=== PATIENT | female | born 2000 | race Caucasian/White ===

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

== ENCOUNTER → 2019-01-09 | Outpatient (CLI) | payer OTHER ==
--- NOTE | 2019-01-09 13:17 | Diagnostic Imaging Report ---
Left ankle at 12:24. Indication: Injured ankle. 3 views were obtained. There are no prior studies available for comparison. There is no fracture, dislocation or acute bony abnormality evident. Ankle mortise is not widened and the talar dome is smooth. There is soft tissue edema over the lateral malleolus. Impression: There is no evidence for an acute bony abnormality. Dictated by: Dictated on workstation # [id number]
== END ==
LOC: RAD 11:50
PROVIDERS: ATTEND Nurse Practitioner Family
DX: S99.912A Unspecified injury of left ankle, initial encounter (principal)
CPT/HCPCS: 73610

== ENCOUNTER → 2019-08-03 | Outpatient (CLI) | payer OTHER ==
[~2019-08-03] MED LIST changes: -CETI10TA20 PO; +CETI10TA21 PO; -MONT10TA24 PO; +MONT10TA26 PO; -OMEP20CA13 PO; +OMEP20CA18 PO; -TRAM50TA2 PO; +TRM50T PO
[2019-08-03 17:24] LABS: HEMOGLOBIN 12.6 G/DL (11.5-16.0); MEAN PLATELET VOLUME 10.9 FL (7.4-10.4); RED CELL DISTRIBUTION WIDTH 12.4 % (10.0-14.5); WHITE BLOOD COUNT 10.6 10^3/uL (4.3-11.0)
[2019-08-03 17:41] LABS: ALBUMIN 4.4 GM/DL (3.2-4.5)
[2019-08-03 17:42] LABS: CHLORIDE 103 MMOL/L (98-107); POTASSIUM 4.1 MMOL/L (3.6-5.0); SODIUM 138 MMOL/L (135-145)
[2019-08-03 17:43] LABS: AMYLASE 63 U/L (25-125); CALCIUM 9.2 MG/DL (8.5-10.1)
[2019-08-03 17:44] LABS: GLUCOSE 84 MG/DL (70-105)
[2019-08-03 17:45] LABS: CARBON DIOXIDE 25 MMOL/L (21-32)
[2019-08-03 17:46] LABS: BILIRUBIN,TOTAL 0.3 MG/DL (0.1-1.0)
[2019-08-03 17:47] LABS: ALKALINE PHOSPHATASE 84 U/L (40-136)
[2019-08-03 17:48] LABS: CREATININE SERUM 0.78 MG/DL (0.60-1.30); GFR ESTIMATED > 60
[2019-08-03 17:49] LABS: BUN/CREATININE RATIO 13
[2019-08-03 17:51] LABS: ALANINE AMINOTRANSFERASE 39 U/L (0-55); LIPASE 57 U/L (8-78)
[2019-08-03 18:13] LABS: FREE T4 (FREE THYROXINE) 1.02 NG/DL (0.70-1.48)
== END ==
LOC: LAB 17:07
PROVIDERS: ATTEND Nurse Practitioner Family
DX: E04.1 Nontoxic single thyroid nodule (principal); F41.1 Generalized anxiety disorder; F33.0 Major depressive disorder, recurrent, mild; E03.9 Hypothyroidism, unspecified; E16.1 Other hypoglycemia; L68.0 Hirsutism
CPT/HCPCS: 36415; 80053; 82150; 83036; 83690; 84439; 84443; 85027

== ENCOUNTER → 2019-08-09 | Outpatient (CLI) | payer OTHER ==
--- NOTE | 2019-08-09 13:23 | Diagnostic Imaging Report ---
CLINICAL INDICATION: Patient with thyroid nodule. Follow-up exam. COMPARISONS: Thyroid ultrasound dated 03/24/2018. 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 Left thyroid lobe measures 5.5 cm x 1.7 cm x 1.8 cm. The left thyroid gland is heterogeneous with several nodules noted. The largest one measures 1.3 cm x 0.7 cm x 1.1 cm involving the inferior posterior aspect of the left thyroid lobe and is heterogeneous and hypoechoic. This nodule was not measured on the prior study, and is remeasured at roughly 12 mm in craniocaudal dimension and 6 mm in AP dimension. The previous 6 mm predominantly hypoechoic nodule in the midportion of the left thyroid gland has not significantly changed. There is no other significant abnormality. IMPRESSION: 1: Grossly stable heterogeneous hypoechoic nodular area measuring 1.3 cm involving the posterior inferior aspect of the left thyroid lobe. 2: Stable 6 mm predominantly hypoechoic nodule involving the mid left thyroid gland. 3: Thyroid gland parenchyma is heterogeneous. Dictated by: Dictated on workstation # [id number]
== END ==
LOC: RAD 11:30
PROVIDERS: ATTEND Nurse Practitioner Family
DX: E04.2 Nontoxic multinodular goiter (principal); F41.1 Generalized anxiety disorder; F33.0 Major depressive disorder, recurrent, mild; E03.9 Hypothyroidism, unspecified; E16.1 Other hypoglycemia; L68.0 Hirsutism
CPT/HCPCS: 76536

== ENCOUNTER → 2019-08-23 | Outpatient (CLI) | payer OTHER | LOC: CARD 14:24 | PROVIDERS: ATTEND Nurse Practitioner Family | DX: R07.9 Chest pain, unspecified (principal) | CPT/HCPCS: 93225; 93226 ==

== ENCOUNTER → 2019-10-16 | Outpatient (CLI) | payer OTHER | LOC: LABNPT 05:30 | PROVIDERS: ATTEND Family Medicine | DX: R50.9 Fever, unspecified (principal); Z20.828 Contact with and (suspected) exposure to other viral communicable diseases | CPT/HCPCS: 87635 ==

== ENCOUNTER → 2019-10-30 | Outpatient (CLI) | payer OTHER ==
[~2019-10-30] MED LIST changes: -CETI10TA21 PO; +CETI10TA49 PO
== END ==
LOC: LABNPT 06:13
PROVIDERS: ATTEND Family Medicine
DX: R05 Cough (principal); R06.2 Wheezing; Z20.828 Contact with and (suspected) exposure to other viral communicable diseases
CPT/HCPCS: 87635

== ENCOUNTER → 2019-12-14 | Outpatient (CLI) | payer OTHER ==
[2019-12-14 12:34] LABS: BASOPHILS % (AUTO) 0 % (0-10); EOSINOPHILS # (AUTO) 0.1 10^3/uL (0.0-0.3); EOSINOPHILS % (AUTO) 1 % (0-10); HEMATOCRIT 42 % (35-52); HEMOGLOBIN 13.2 g/dL (11.5-16.0); LYMPHOCYTES # (AUTO) 2.3 10^3/uL (1.0-4.0); LYMPHOCYTES % (AUTO) 26 % (12-44); MEAN CORPUSCULAR HEMOGLOBIN 25 pg (25-34); MEAN CORPUSCULAR HGB CONC 31 g/dL (32-36); MEAN CORPUSCULAR VOLUME 80 fL (80-99); MEAN PLATELET VOLUME 11.2 fL (9.0-12.2); MONOCYTES # (AUTO) 0.5 10^3/uL (0.0-1.0); MONOCYTES % (AUTO) 6 % (0-12); NEUTROPHILS % (AUTO) 67 % (42-75); PLATELET COUNT 299 10^3/uL (130-400)
[2019-12-14 12:54] LABS: ALANINE AMINOTRANSFERASE 88 U/L (0-55); ALBUMIN 4.5 GM/DL (3.2-4.5); ALKALINE PHOSPHATASE 93 U/L (40-136); BILIRUBIN,TOTAL 0.4 MG/DL (0.1-1.0); BUN/CREATININE RATIO 17; CALCIUM 8.9 MG/DL (8.5-10.1); CARBON DIOXIDE 25 MMOL/L (21-32); CHLORIDE 102 MMOL/L (98-107); CREATININE SERUM 0.71 MG/DL (0.60-1.30); GFR ESTIMATED > 60; GLUCOSE 95 MG/DL (70-105); SODIUM 139 MMOL/L (135-145)
[2019-12-14 13:15] LABS: FREE T4 (FREE THYROXINE) 0.95 NG/DL (0.70-1.48)
== END ==
LOC: LAB 12:15
PROVIDERS: ATTEND Nurse Practitioner Family
DX: F41.1 Generalized anxiety disorder (principal); E03.9 Hypothyroidism, unspecified; E16.1 Other hypoglycemia; L68.0 Hirsutism; F33.0 Major depressive disorder, recurrent, mild
CPT/HCPCS: 36415; 80053; 83036; 84439; 84443; 85025

== ENCOUNTER → 2020-02-18 | Outpatient (CLI) | payer OTHER ==
[~2020-02-18] MED LIST changes: -MONT10TA26 PO; +MONT10TA97 PO
--- NOTE | 2020-02-18 12:20 | Diagnostic Imaging Report ---
PROCEDURE: US Thyroid. TECHNIQUE: Multiple real-time grayscale images were obtained of the thyroid in various projections. INDICATION: Thyroid nodule, follow-up. COMPARISON: Correlation is made to prior ultrasound from 08/09/2019. FINDINGS: Right lobe of thyroid is surgically absent. Left lobe measures 4.9 x 1.3 x 1.5 cm. Hypoechoic nodule in the posterior lower pole measures 1.3 x 1.0 x 0.6 cm, stable when compared to prior exam. 8 mm x 6 mm x 4 mm nodule in the upper pole of left lobe appears stable. No new masses detected. IMPRESSION: Stable left lobe thyroid nodules when compared with exam from 08/09/2019. Dictated by: Dictated on workstation # [id number]
== END ==
LOC: RAD 12:15
PROVIDERS: ATTEND Surgery
DX: E04.2 Nontoxic multinodular goiter (principal)
CPT/HCPCS: 76536

== ENCOUNTER → 2020-05-08 | Outpatient (CLI) | payer OTHER ==
[~2020-05-08] MED LIST changes: +MONT10TA32 PO; -MONT10TA97 PO
--- NOTE | 2020-05-08 12:27 | Diagnostic Imaging Report ---
Left foot at 11:52. Indication: Foot pain following injury. 3 views were obtained. There are no prior studies available for comparison. There is no fracture, dislocation or acute bony abnormality evident. The Lisfranc joint seems well maintained. The soft tissues are unremarkable. There is no sign of a radiopaque foreign body. Impression: There is no evidence for an acute bony abnormality or for a radiopaque foreign body. Dictated by: Dictated on workstation # [id number]
== END ==
LOC: RAD 11:43
PROVIDERS: ATTEND Nurse Practitioner Family
DX: M79.672 Pain in left foot (principal)
CPT/HCPCS: 73630

== ENCOUNTER → 2020-06-13 | Outpatient (CLI) | payer OTHER ==
--- NOTE | 2020-06-13 16:21 | Diagnostic Imaging Report ---
EXAMINATION: Left clavicle radiographs, 2 views. COMPARISON: August 06, 2014. HISTORY: 20-year-old female, left clavicle pain. FINDINGS: There is no identified fracture. The acromioclavicular joint is normally aligned. There are no acromioclavicular degenerative changes. IMPRESSION: Unremarkable radiographs of the left clavicle. Dictated by: Dictated on workstation # [id number]
--- NOTE | 2020-06-13 16:39 | Diagnostic Imaging Report ---
INDICATION: Decreased range of motion and pain with no known injury. TECHNIQUE: Three views of the left shoulder CORRELATION STUDY: None FINDINGS: The glenohumeral and acromioclavicular alignment are maintained and unremarkable. There is no evidence for acute fracture or dislocation. The visualized soft tissues are unremarkable. IMPRESSION: 1. Unremarkable examination left shoulder. Dictated by: Dictated on workstation # [id number]
== END ==
LOC: RAD 14:07
PROVIDERS: ATTEND Nurse Practitioner Family
DX: M25.512 Pain in left shoulder (principal); R29.898 Other symptoms and signs involving the musculoskeletal system
CPT/HCPCS: 73000; 73030

== ENCOUNTER 2020-06-19 12:35 | Emergency (ER) | payer OTHER ==
[~2020-06-19] VITALS: Ht 157 cm; Wt 81.0 kg
--- NOTE | 2020-06-19 12:54 | ED Upper Extremity ---
General Stated Complaint: L ARM/SHOULDER PAIN Source: patient Exam Limitations: no limitations History of Present Illness Date Seen by Provider: June 19, 2020 Time Seen by Provider: 12:52 Initial Comments To ER with left shoulder and left upper lateral chest pain. This initially began about a month ago without known injury she just had some insidious onset of left shoulder pain. Is worsened by movement. She was supposed to have an MRI of the shoulder but that has yet to be scheduled. Today at about 11 AM she had a recurrence of the left shoulder pain and some tingling down the left arm. No known injury. 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 Onset: other Severity: moderate Pain/Injury Location: left shoulder Method of Injury: unknown Modifying Factors: Worse With Movement Allergies and Home Medications Allergies Coded Allergies: vancomycin (Unverified Allergy, Intermediate, BRIGHT RED FACE WITH NO BREATHING DIFFICULTY, 03/17/15) Penicillins (Unverified Allergy, Mild, RASH,N/V; HAS RECEIVED ANCEF WITHOUT PROBLEM, 11/22/12) codeine (Unverified Allergy, Mild, STRONG FAMILY HX OF REACTIONS, 10/10/08) hydrocodone (Verified Allergy, Unknown, 12/23/17) Sulfa (Sulfonamide Antibiotics) (Unverified Adverse Reaction, Unknown, STRONG FAMILY HX OF REACTIONS, 03/17/15) Patient Home Medication List Home Medication List Reviewed: Yes Review of Systems Constitutional: see HPI EENTM: see HPI Respiratory: no symptoms reported Cardiovascular: no symptoms reported Genitourinary: no symptoms reported Musculoskeletal: see HPI Skin: no symptoms reported Psychiatric/Neurological: No Symptoms Reported Past Ndbgfpb-Cbegal-Uwljja Hx Patient Social History 2nd Hand Smoke Exposure: No Recent Hopitalizations: No Immunizations Up To Date Tetanus Booster (TDap): Less than 5yrs PED Vaccines UTD: Yes Date of Influenza Vaccine: Nov 21, 2017 Seasonal Allergies Seasonal Allergies: Yes Past Medical History Surgeries: Yes Ear Surgery, Thyroidectomy Respiratory: No Pneumonia Cardiac: No Neurological: Yes Headaches /Migraines Reproductive Disorders: Yes Female Reproductive Disorders: Denies, Polycystic Ovarian Dis Sexually Transmitted Disease: No HIV/AIDS: No Genitourinary: No Gastrointestinal: Yes Gastroesophageal Reflux, Irritable Bowel Musculoskeletal: Yes (R FOOT FRACTURE) Fractures Endocrine: Yes (PART OF THYROID TAKEN OUT) Diabetes, Non-Insulin dep HEENT: Yes ( TONSILS OUT) Chronic Ear Infection, Tonsilitis Loss of Vision: Bilateral Hearing Impairment: Denies Cancer: No (THYROID PRE-CANCEROUS CELLS) Psychosocial: No Anxiety, Depression Integumentary: No Blood Disorders: No Adverse Reaction/Blood Tranf: No (N/A) Family Medical History Alcoholism grandparents Arthritis grandparents Asthma grandparents Colon cancer grandparents Diabetes mellitus 19 MOTHER grandparents FH: Hodgkin's disease 19 MOTHER Hypertension 19 FATHER 19 MOTHER grandparents Cancer, Diabetes, Hypertension Physical Exam Vital Signs Vital Signs - First Documented 06/19/20 12:42 Temp 36.2 Pulse 73 Resp 18 B/P (MAP) 180/113 (135) Pulse Ox 99 Capillary Refill : Height, Weight, BMI Height: 5'1.00" Weight: 160lbs. 0.0oz. 72.275696gy; 30.2 BMI Method:Stated General Appearance: WD/WN, no apparent distress HEENT: PERRL/EOMI, normal ENT inspection Respiratory: no respiratory distress, no accessory muscle use Back: normal inspection, other (Limited range of motion secondary to pain within the shoulder joint) Elbow/Forearm: normal inspection, non-tender Wrist: Yes normal inspection, Yes non-tender Neurologic/Tendon: normal sensation Neurologic/Psychiatric: alert, normal mood/affect, oriented x 3 Skin: normal color, warm/dry The left hand over the ulnar side is questionably mottled and questionably cooler to touch than the right. This is not an obvious difference. The radius pulses strong and equal bilaterally. Progress/Results/Core Measures Results/Orders Lab Results Laboratory Tests Test 06/19/20 13:00 Range/Units White Blood Count 9.3 4.3-11.0 10^3/uL Red Blood Count 4.97 3.80-5.11 10^6/uL Hemoglobin 12.1 11.5-16.0 g/dL Hematocrit 38 35-52 % Mean Corpuscular Volume 77 L 80-99 fL Mean Corpuscular Hemoglobin 24 L 25-34 pg Mean Corpuscular Hemoglobin Concent 32 32-36 g/dL Red Cell Distribution Width 18.4 H 10.0-14.5 % Platelet Count 322 130-400 10^3/uL Mean Platelet Volume 11.9 9.0-12.2 fL Serum Test, Qualitative NEGATIVE NEGATIVE My Orders Orders - CHAO MCGARRY APRN Ed Iv/Invasive Line Start (06/19/20 12:48) Clonidine Tablet (Catapres Tablet) (06/19/20 13:00) Tramadol Tablet (Ultram Tablet) (06/19/20 13:00) Ct Angio Ext Upper Left W (06/19/20 12:48) Hcg,Qualitative Serum (06/19/20 12:48) Cbc No Diff (06/19/20 12:48) Iohexol Injection (Omnipaque 350 Mg/Ml 1 (06/19/20 13:15) Received Contrast (Hold Metformin- Contr (06/19/20 13:15) Sodium Chloride Flush (Catheter Flush Sy (06/19/20 13:15) Ns (Ivpb) (Sodium Chloride 0.9% Ivpb Bag (06/19/20 13:15) Medications Given in ED Current Medications Medications Dose Ordered Sig/Keon Route Start Time Stop Time Status Last Admin Dose Admin Clonidine HCl 0.1 mg ONCE ONCE PO 06/19/20 13:00 06/19/20 13:01 DC 06/19/20 13:12 0.1 MG Iohexol 100 ml ONCE ONCE IV 06/19/20 13:15 06/19/20 13:16 DC 06/19/20 13:44 72 ML Sodium Chloride 10 ml NEEDED PRN IV 06/19/20 13:15 06/19/20 13:44 10 ML Sodium Chloride 100 ml ONCE ONCE IV 06/19/20 13:15 06/19/20 13:16 DC 06/19/20 13:44 80 ML Tramadol HCl 50 mg ONCE ONCE PO 06/19/20 13:00 06/19/20 13:01 DC 06/19/20 13:12 50 MG Vital Signs/I&O 06/19/20 12:42 Temp 36.2 Pulse 73 Resp 18 B/P (MAP) 180/113 (135) Pulse Ox 99 Departure Communication (Admissions) NAME: LUISA RODRIGUEZ [facility] REC#: [id number] PT STATUS: REG ER : 2000 PHYSICIAN: CHAO MCGARRY APRN ADMIT DATE: 06/19/20/ER Draft Date of Exam:06/19/20 CT ANGIO EXT UPPER LEFT W INDICATION: Left arm pain CTA of left upper extremity Thin axial sections through the left upper extremity from the neck to elbow were obtained following an intravenous contrast bolus. Multiplanar MIP images reconstructed and reviewed. Left subclavian vein is widely patent. Left axillary vein is widely patent. Left brachial vein is widely patent. The veins are not dilated. There are no pathologic masses or fluid collections. IMPRESSION: Unremarkable left subclavian, axillary and brachial arteries. Dictated on workstation # [id number] Dict: 06/19/20 1411 Trans: 06/19/20 1415 [facility] [id number] Interpreted by: UZMA VILLEGAS MD Electronically signed by: Impression Primary Impression: Internal derangement of left shoulder Disposition: 01 HOME, SELF-CARE Condition: Stable Departure-Patient Inst. Decision time for Depature: 14:22 Referrals: BILLY FRANZ MD (PCP/Family) Primary Care Physician Patient Instructions: Shoulder Pain (DC) Add. Discharge Instructions: 1. Medication as directed. Follow-up with your doctor next week. Proceed with the MRI. Copy Copies To 1: BILLY FRANZ MD, PETER J APRN June 19, 2020 12:54
[2020-06-19] MEDS ORDERED: cloNIDine 0.1 MG (CATAPRES) TAB PO ONE (13:00)
[2020-06-19 13:10] LABS: HEMOGLOBIN 12.1 g/dL (11.5-16.0); MEAN PLATELET VOLUME 11.9 fL (9.0-12.2); WHITE BLOOD COUNT 9.3 10^3/uL (4.3-11.0)
[2020-06-19] MEDS ORDERED: IOHEXOL 350 MG/ML 100 ML (OMNIPAQUE 350) VIAL IV ONE (13:15)
[2020-06-19] MEDS ORDERED: NS 100 ML (IVPB) BAG IV ONE (13:15)
[2020-06-19] MEDS ORDERED: HOLD METFORMIN - RECEIVED CONTRAST 20 ML VIAL IV SCH (13:15)
[2020-06-19] MEDS ORDERED: CATHETER FLUSH 10 ML SYR IV PRN (13:15)
[2020-06-19] MEDS ORDERED: NORE1PAT10 (13:25)
[2020-06-19] MEDS ORDERED: SERT-414 (13:25)
--- NOTE | 2020-06-19 14:15 | Diagnostic Imaging Report ---
INDICATION: Left arm pain CTA of left upper extremity Thin axial sections through the left upper extremity from the neck to elbow were obtained following an intravenous contrast bolus. Multiplanar MIP images reconstructed and reviewed. Left subclavian vein is widely patent. Left axillary vein is widely patent. Left brachial vein is widely patent. The veins are not dilated. There are no pathologic masses or fluid collections. IMPRESSION: Unremarkable left subclavian, axillary and brachial arteries. Dictated by: Dictated on workstation # [id number]
[2020-06-19 14:53] VITALS: BP 132/102
== END 2020-06-19 14:53 | disposition home or self-care (01) ==
LOC: EDUNIT# 12:35 → ER 12:37
DX: M24.9 Joint derangement, unspecified (principal); E11.9 Type 2 diabetes mellitus without complications; Z88.0 Allergy status to penicillin; Z88.5 Allergy status to narcotic agent; Z88.2 Allergy status to sulfonamides; Z88.8 Allergy status to other drugs, medicaments and biological substances
CPT/HCPCS: 36415; 73206; 84703; 85027

== ENCOUNTER → 2020-07-02 | Outpatient (CLI) | payer OTHER ==
[~2020-07-02] VITALS: Ht 157.5 cm; Wt 84.1 kg
[~2020-07-02] MED LIST changes: +GADOBUTROL 7.5 MMOL/7.5 ML (GADAVIST) VIAL IV ONE; +IOHEXOL 300 MG/ML 50 ML (OMNIPAQUE 300) VIAL IV ONE; +NORE1PAT10; +SERT-414
--- NOTE | 2020-07-02 15:56 | Diagnostic Imaging Report ---
INDICATION: Left shoulder pain. PROCEDURE: Patient was brought to the procedure room and placed on table in the supine position. Skin of the left shoulder was prepped and draped in the usual sterile fashion. Small amount of 1% lidocaine was utilized for local anesthesia. A 22-gauge needle was advanced into the left shoulder at the rotator interval. A 15 mm solution of iodinated contrast, normal saline and gadolinium was injected under fluoroscopic observation. Needle was removed and hemostasis was obtained. 21 seconds of fluoroscopic time was utilized. The patient tolerated the procedure well and was sent to MRI in satisfactory condition. IMPRESSION: Successful left shoulder injection of gadolinium contrast solution, using fluoroscopy. Dictated by: Dictated on workstation # [id number]
--- NOTE | 2020-07-02 16:58 | Diagnostic Imaging Report ---
EXAMINATION: Magnetic resonance imaging of the left shoulder with intra-articular contrast. DATE: July 02, 2020. COMPARISON: Left shoulder arthrogram July 02, 2020. Left shoulder radiographs June 13, 2020. HISTORY: 20-year-old female, left shoulder pain. Evaluation for superior labral tear. TECHNIQUE: Magnetic Resonance Imaging sequences were performed of the shoulder following the intra-articular administration of contrast. FINDINGS: ROTATOR CUFF, LIGAMENTS, TENDONS, AND MUSCLES: The supraspinatus, infraspinatus, teres minor, and subscapularis tendons and muscles are intact. There is normal rotator cuff muscle bulk and signal. LONG HEAD OF BICEPS: The biceps labral attachment and long head of the biceps tendon are intact. The long head of the biceps tendon is normally positioned within the bicipital groove. GLENOHUMERAL JOINT: The humeral head is well positioned relative to the glenoid. The labrum is intact. There is no identified paralabral cyst. The articular cartilage is grossly intact. There is no intra-articular body or prominent synovitis. ACROMIOCLAVICULAR JOINT: The acromioclavicular joint is normally aligned. The coracoclavicular and coracoacromial ligaments are intact. There are no degenerative changes of the acromioclavicular joint. BONE: There is no os acromiale. There is no Hill-Sachs deformity. There is no acute fracture, bone contusion, or other notable bone marrow signal abnormality. BURSAE AND SOFT TISSUES: The bursae and soft tissue surrounding the shoulder are unremarkable. IMPRESSION: Unremarkable MRI arthrogram of the left shoulder. Dictated by: Dictated on workstation # [id number]
== END ==
LOC: RAD 13:30
PROVIDERS: ATTEND Nurse Practitioner
DX: S43.432A Superior glenoid labrum lesion of left shoulder, initial encounter (principal); M75.02 Adhesive capsulitis of left shoulder; X58.XXXA Exposure to other specified factors, initial encounter
CPT/HCPCS: 23350; 73040; 73222

== ENCOUNTER 2020-08-24 14:00 | Day surgery (SDC) | payer OTHER ==
[~2020-08-24] VITALS: Ht 157.4 cm; Wt 83.2 kg
[~2020-08-24 14:00] MED LIST changes: -GADOBUTROL 7.5 MMOL/7.5 ML (GADAVIST) VIAL IV ONE; -IOHEXOL 300 MG/ML 50 ML (OMNIPAQUE 300) VIAL IV ONE
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
[2020-08-24 15:16] LABS: BASOPHILS % (AUTO) 0 % (0-10); EOSINOPHILS # (AUTO) 0.1 10^3/uL (0.0-0.3); EOSINOPHILS % (AUTO) 0 % (0-10); HEMATOCRIT 41 % (35-52); HEMOGLOBIN 13.3 g/dL (11.5-16.0); LYMPHOCYTES # (AUTO) 1.7 10^3/uL (1.0-4.0); LYMPHOCYTES % (AUTO) 10 % (12-44); MEAN CORPUSCULAR HEMOGLOBIN 26 pg (25-34); MEAN CORPUSCULAR HGB CONC 32 g/dL (32-36); MEAN CORPUSCULAR VOLUME 81 fL (80-99); MEAN PLATELET VOLUME 11.2 fL (9.0-12.2); MONOCYTES # (AUTO) 0.8 10^3/uL (0.0-1.0); MONOCYTES % (AUTO) 5 % (0-12); NEUTROPHILS # (AUTO) 13.7 10^3/uL (1.8-7.8); NEUTROPHILS % (AUTO) 84 % (42-75); PLATELET COUNT 299 10^3/uL (130-400); WHITE BLOOD COUNT 16.4 10^3/uL (4.3-11.0)
[2020-08-24 15:19] LABS: BILIRUBIN,URINE NEGATIVE (NEGATIVE); CLARITY,URINE CLEAR; COLOR,URINE YELLOW; GLUCOSE, URINE (UA) NEGATIVE (NEGATIVE); KETONES,URINE NEGATIVE (NEGATIVE); LEUKOCYTE ESTERASE ,URINE TRACE (NEGATIVE); NITRITE,URINE NEGATIVE (NEGATIVE); PH,URINE 5.5 (5-9); PROTEIN,URINE NEGATIVE (NEGATIVE)
[2020-08-24 15:24] LABS: CHLORIDE 102 MMOL/L (98-107); SODIUM 136 MMOL/L (135-145)
[2020-08-24 15:25] LABS: CALCIUM 9.2 MG/DL (8.5-10.1)
[2020-08-24 15:26] LABS: GLUCOSE 92 MG/DL (70-105); TOTAL PROTEIN 7.5 GM/DL (6.4-8.2)
[2020-08-24 15:28] LABS: BILIRUBIN,TOTAL 0.3 MG/DL (0.1-1.0); CARBON DIOXIDE 23 MMOL/L (21-32)
[2020-08-24 15:30] LABS: ALKALINE PHOSPHATASE 73 U/L (40-136); CREATININE SERUM 0.75 MG/DL (0.60-1.30); GFR ESTIMATED > 60
[2020-08-24] MEDS ORDERED: KETOROLAC 30 MG/ML VIAL IVP ONE (15:30)
[2020-08-24 15:31] LABS: BUN/CREATININE RATIO 13
[2020-08-24 15:33] LABS: ALANINE AMINOTRANSFERASE 25 U/L (0-55)
[2020-08-24 15:45] LABS: BAND NEUTROPHILS 4 %; NEUTROPHILS % (MANUAL) 82 %
[2020-08-24] MEDS ORDERED: NS 100 ML (IVPB) BAG IV ONE ×2 (15:45→16:45)
[2020-08-24] MEDS ORDERED: HOLD METFORMIN - RECEIVED CONTRAST 20 ML VIAL IV SCH ×2 (15:45→16:45)
[2020-08-24] MEDS ORDERED: IOHEXOL 350 MG/ML 100 ML (OMNIPAQUE 350) VIAL IV ONE ×2 (15:45→16:45)
[2020-08-24 15:46] LABS: BASOPHILS % (MANUAL) 0 %; EOSINOPHILS % (MANUAL) 0 %; LYMPHOCYTES % (MANUAL) 9 %; MONOCYTES % (MANUAL) 5 %; RBC MORPH NORMAL
[2020-08-24 15:48] LABS: BACTERIA,URINE TRACE /HPF; RBC,URINE RARE /HPF; WBC,URINE RARE /HPF
--- NOTE | 2020-08-24 16:19 | Diagnostic Imaging Report ---
PROCEDURE: CT abdomen and pelvis with contrast, rule out appendicitis. TECHNIQUE: Multiple contiguous axial images were obtained through the abdomen and pelvis after the administration of intravenous contrast. All CT scans use one or more of the following dose optimizing techniques: automated exposure control, MA and/or KvP adjustment based on patient size and exam type or iterative reconstruction. INDICATION: Right upper quadrant abdominal pain. CORRELATION STUDY: 06/26/2018. FINDINGS: LOWER THORAX: Clear. LIVER: Unremarkable. GALLBLADDER: Present and unremarkable. No bile duct dilatation. SPLEEN: Borderline enlarged. PANCREAS: Unremarkable. ADRENAL GLANDS: Unremarkable. KIDNEYS: Slight asymmetrically smaller right kidney which also demonstrates several cortical cysts. Nonobstructing stone in the inferior pole of left kidney. No ureteric calcification or obstructive uropathy. ABDOMINAL AORTA: Unremarkable, nonaneurysmal. GASTROINTESTINAL TRACT: Stomach with small amount of fluid. No small bowel obstruction. The appendix currently appears to be limited in visualization but measures just under 7 mm. There is however suggestion of slight pericecal inflammatory change with very small amount of haziness in the right paracolic gutter. No abscess formation. A few scattered mesenteric lymph nodes. URINARY BLADDER: Relatively decompressed. REPRODUCTIVE: Uterus and adnexa appear generally unremarkable. OSSEOUS STRUCTURES: No acute abnormality. OTHER: None. IMPRESSION: 1. The appendix is limited visualization. What appears to be the appendix, however, is borderline prominent measuring just under upper limits of normal. There is, however, question of suspect slight haziness and inflammation in and around the appendix and cecum. Findings are somewhat equivocal but suspicious for potential early acute appendicitis. Dictated by: Dictated on workstation # [id number]
--- NOTE | 2020-08-24 16:47 | Progress Note-Pre Operative ---
Pre-Operative Progress Note H&P Reviewed The H&P was reviewed, patient examined and no changes noted. Date Seen by Provider: Aug 24, 2020 Time Seen by Provider: 17:00 Date H&P Reviewed: Aug 24, 2020 Time H&P Reviewed: 17:00 Pre-Operative Diagnosis: non-complicated acute appendicitis CHARLOTTE SINGLETON MD Aug 24, 2020 16:47
--- NOTE | 2020-08-24 17:07 | HISTORY AND PHYSICAL ---
DATE OF SERVICE: ATTENDING PRIMARY CARE PHYSICIAN: Leatha Dash MD. HISTORY OF PRESENT ILLNESS: The patient is a 20-year-old female who presented to the Emergency Department with acute onset of pain in the right lower abdominal quadrant this morning. She states that she had some milder episodes yesterday; however, insignificant. She does not report any nausea nor vomiting as well as no diarrhea or constipation. She also does not report having these symptoms before in the past. A CT scan was performed, which did show dilatation of the appendix consistent with a noncomplicated appendicitis. PAST MEDICAL HISTORY: Polycystic ovarian syndrome, migraine headaches, history of pneumonia, gastroesophageal reflux disease, irritable bowel syndrome, non-insulin dependent diabetes, thyroid dysplasia. PAST SURGICAL HISTORY: Partial thyroidectomy. ALLERGIES: VANCOMYCIN, PENICILLIN, CODEINE, HYDROCODONE, SULFA. MEDICATIONS: Sertraline 100 mg daily, norelgestromin/estradiol 1 patch every week. SOCIAL HISTORY: Negative smoke, negative alcohol. VITAL SIGNS: Temperature 37.1, blood pressure 133/106, pulse 111, respirations 18, pulse ox 98% on room air. REVIEW OF SYSTEMS: She is well-nourished female currently in no acute distress. She is not experiencing any shortness of breath or difficulty breathing. No chest pain, palpitations, diaphoresis. No nausea or vomiting. No diarrhea or constipation, no red blood per rectum, no dark tarry stools. No fever or chills. No recent inadvertent weight loss. All other review of systems negative. PHYSICAL EXAMINATION: CHEST: Clear. Good breath sounds bilaterally. HEART: Regular, no murmurs. EXTREMITIES: No lower extremity edema, negative Homans sign. HEENT: No scleral icterus. NECK: No cervical lymphadenopathy. ABDOMEN: Nondistended. There is pain in the right lower abdominal quadrant at McBurney's point with voluntary guarding, no rebound. No hernias. SKIN: Warm, dry. LABORATORY DATA: WBC 16.4, hemoglobin 13.3, hematocrit 41, platelets 299. BUN 10, creatinine 0.75. Urinalysis, trace amounts of leukocyte esterase. ASSESSMENT AND PLAN: A 20-year-old female with a noncomplicated acute appendicitis. The natural history of this disease process was explained to the patient as well as the risks and benefits of surgery and she is in full understanding of this and would like to proceed with a laparoscopic appendectomy, which we will schedule on this admission. Job ID: [id number] DocumentID: [id number] Dictated Date: 08/24/2020 16:43:43 Second Helper Date: 08/24/2020 17:07:10 Dictated By: CHARLOTTE SINGLETON MD
[2020-08-24] MEDS ORDERED: ACETAMINOPHEN 325 MG TABLET PO PRN (17:45)
[2020-08-24] MEDS ORDERED: PIPERACILLIN/TAZOBACTAM (BULK) 4.5 GM in NS (IVPB) 100 ML IV ONE (18:00)
[2020-08-24] MEDS ORDERED: LACTATED RINGERS 1,000 ML IV ONE (18:00)
[2020-08-24] MEDS: LACTATED RINGERS 1,000 ML IV SCH (18:09)
[2020-08-24 20:40] VITALS: BP 124/86
[2020-08-24] MEDS: fentaNYL INJ 100 MCG/2 ML AMP IVP PRN (22:32)
[2020-08-24] MEDS: ONDANSETRON 4 MG/2 ML (SDV) Z0FRAN IVP PRN (22:33)
[2020-08-25] VITALS (13 sets, daily range): BP systolic 109–129; BP diastolic 62–87
[2020-08-25] MEDS: LACTATED RINGERS 1,000 ML IV SCH ×3 (02:05→16:48)
[2020-08-25] MEDS: PIPERACILLIN/TAZOBACTAM (BULK) 4.5 GM in NS (IVPB) 100 ML IV SCH ×3 (02:05→19:46)
[2020-08-25 06:53] LABS: BASOPHILS % (AUTO) 0 % (0-10); EOSINOPHILS # (AUTO) 0.1 10^3/uL (0.0-0.3); EOSINOPHILS % (AUTO) 1 % (0-10); HEMATOCRIT 37 % (35-52); HEMOGLOBIN 11.9 g/dL (11.5-16.0); LYMPHOCYTES # (AUTO) 2.4 10^3/uL (1.0-4.0); LYMPHOCYTES % (AUTO) 31 % (12-44); MEAN CORPUSCULAR HEMOGLOBIN 26 pg (25-34); MEAN CORPUSCULAR HGB CONC 32 g/dL (32-36); MEAN CORPUSCULAR VOLUME 82 fL (80-99); MEAN PLATELET VOLUME 11.6 fL (9.0-12.2); MONOCYTES # (AUTO) 0.6 10^3/uL (0.0-1.0); MONOCYTES % (AUTO) 7 % (0-12); NEUTROPHILS # (AUTO) 4.6 10^3/uL (1.8-7.8); NEUTROPHILS % (AUTO) 60 % (42-75); PLATELET COUNT 225 10^3/uL (130-400); WHITE BLOOD COUNT 7.7 10^3/uL (4.3-11.0)
[2020-08-25 07:04] LABS: CHLORIDE 105 MMOL/L (98-107); POTASSIUM 3.7 MMOL/L (3.6-5.0); SODIUM 138 MMOL/L (135-145)
[2020-08-25 07:05] LABS: CALCIUM 8.4 MG/DL (8.5-10.1); GLUCOSE 84 MG/DL (70-105)
[2020-08-25 07:07] LABS: CARBON DIOXIDE 22 MMOL/L (21-32)
[2020-08-25 07:09] LABS: CREATININE SERUM 0.74 MG/DL (0.60-1.30); GFR ESTIMATED > 60
[2020-08-25 07:10] LABS: BUN/CREATININE RATIO 11
[2020-08-25] MEDS: fentaNYL INJ 100 MCG/2 ML AMP IVP PRN ×4 (07:54→22:35)
[2020-08-25] MEDS: ONDANSETRON 4 MG/2 ML (SDV) Z0FRAN IVP PRN ×3 (10:12→20:58)
[2020-08-25] MEDS ORDERED: SPIR50TA4 PO (10:14)
[2020-08-25] MEDS ORDERED: CETI10TA49 PO (10:14)
[2020-08-25] MEDS ORDERED: NORE1PAT7 TD (10:14)
[2020-08-25] MEDS ORDERED: LACT1CAP72 PO (10:14)
[2020-08-25] MEDS ORDERED: MULT-1136 PO (10:14)
[2020-08-25] MEDS ORDERED: ACET325T38 PO (10:14)
[2020-08-25] MEDS ORDERED: ESCI20TA39 PO (10:14)
[2020-08-25] MEDS ORDERED: ONDANSETRON 4 MG/2 ML (SDV) Z0FRAN ONE (14:44)
[2020-08-25] MEDS ORDERED: ROCURONIUM 10 MG/ML 5 ML SYRINGE IV ONE (14:44)
[2020-08-25] MEDS ORDERED: MIDAZOLAM 2 MG/2 ML (VERSED) VIAL ONE (14:44)
[2020-08-25] MEDS ORDERED: LIDOCAINE PF 2% 5 ML (XYLOCAINE) VIAL ONE (14:44)
[2020-08-25] MEDS ORDERED: fentaNYL INJ 100 MCG/2 ML AMP ONE (14:44)
[2020-08-25] MEDS ORDERED: proPOfol 200 MG/20 ML (DIPRIVAN) VIAL IV ONE (14:44)
[2020-08-25] MEDS ORDERED: SEVOFLURANE (ULTANE) 15 ML INHAL SOLN ONE ×2 (14:45→17:55)
[2020-08-25] MEDS ORDERED: LIDOCAINE/EPI 1%-1:200,000 (XYLOCAINE) 30 ML VIAL ONE (15:11)
[2020-08-25] MEDS ORDERED: ONDANSETRON 4 MG/2 ML (SDV) Z0FRAN IVP PRN (16:45)
[2020-08-25] MEDS ORDERED: fentaNYL INJ 100 MCG/2 ML AMP IVP ONE (16:45)
[2020-08-25] MEDS ORDERED: LACTATED RINGERS 1,000 ML IV PRN (16:45)
[2020-08-25] MEDS ORDERED: MEPERIDINE (DEMEROL) INJ 50 MG/ML IVP ONE (16:45)
[2020-08-25] MEDS ORDERED: HYDR-3817 PO (17:21)
--- NOTE | 2020-08-25 17:22 | Discharge Inst-Surgical ---
D/C Lap Instructions-MANI New, Converted, or Re-Newed RX: RX on Chart Follow Up Appt in 2 weeks Activity as tolerated No driving for 24 hours No [address] while on pain medications Incentive Spirometry use every 2 hours while awake Regular Diet Symptoms to Report: Fever over 101 degree F, Nausea/Vomiting Infection Signs and Symptoms to report: Increased redness, Foul odor of wound, Increased drainage Bathing instructions: May shower Operative Area Clean/Dry; Keep incision clean/dry If any problems/questions: Contact your physician or go to Emergency Room CHARLOTTE SINGLETON MD Aug 25, 2020 17:22
[2020-08-25] MEDS ORDERED: ceFAZolin INJECTION 2,000 MG ONE (17:47)
--- NOTE | 2020-08-25 18:15 | Progress Note-Post Operative ---
Post-Operative Progess Note Surgeon (s)/Photographic Printer (s) Surgeon CHARLOTTE SINGLETON MD Photographic Printer: none Pre-Operative Diagnosis non-complicated acute appendicitis Post-Operative Diagnosis same Procedure & Operative Findings Date of Procedure 08/25/20 Procedure Performed/Findings laparoscopic appendectomy Anesthesia Type get Estimated Blood Loss Estimated blood loss (mL): minimal Specimens/Packing Specimens Removed appendix CHARLOTTE SINGLETON MD Aug 25, 2020 18:15
[2020-08-25] MEDS ORDERED: METOCLOPRAMIDE INJ 10 MG/2 ML (REGLAN) IVP PRN (20:15)
[2020-08-26] VITALS: BP 122/75
[2020-08-26] MEDS: fentaNYL INJ 100 MCG/2 ML AMP IVP PRN ×3 (01:43→07:50)
--- NOTE | 2020-08-26 03:36 | OPERATIVE REPORT ---
DATE OF SERVICE: 08/25/2020 PREOPERATIVE DIAGNOSIS: Acute appendicitis. POSTOPERATIVE DIAGNOSIS: Acute appendicitis. PROCEDURE: Laparoscopic appendectomy. SURGEON: Charlotte Singleton MD ANESTHESIA: General endotracheal. ESTIMATED BLOOD LOSS: Minimal. FINDINGS: Inflamed appendix, no perforation. DISPOSITION: The patient tolerated the procedure well. INDICATIONS: The patient is a 20-year-old female who presented with a 1-day history of pain in the right lower abdominal quadrant. The pain persisted and worsened over time. She then presented to the Emergency Department where a CT scan was performed, which did show dilatation of the appendix consistent with an acute noncomplicated appendicitis. She also had elevated white count. DESCRIPTION OF PROCEDURE: The patient was brought to the operating room, laid supine on the table. After adequate IV pain and sedative medications and general endotracheal intubation, the abdomen was prepped and draped in standard surgical fashion. A 0.5% Marcaine with epinephrine was then used to anesthetize overlying skin left upper abdominal quadrant and a transverse skin incision made using 15 blade. An 0 silk suture was applied to the medial aspect of incision for retraction and a Veress needle inserted with a low opening pressure of 0 mmHg and the abdomen was then insufflated to 15 mmHg pressure. Veress needle removed and a 5 mm XL trocar placed followed by a 5 mm 45-degree angle laparoscope visualizing the peritoneal cavity. A 4-quadrant abdominal exploration was performed. There was a distended appendix, no perforation. The remainder of the colon and small bowel appeared normal. Under direct visualization, we then proceed to place a supraumbilical 10 mm port after the skin and peritoneal lining were anesthetized using 0.5% Marcaine with epinephrine and a transverse skin incision made using 15 blade. In a similar manner, a suprapubic 5 mm port was placed. The patient was then placed in a Trendelenburg position as well as placed right side up, left side down. The appendix was then retracted towards the anterior abdominal wall and the mesoappendix and the base of the appendix at the cecal base was then stapled and transected with a LUPE 45 mm stapler with a 2.5 mm thickness load. Good hemostasis was observed. The appendix was then removed through the 10 mm port site using an EndoCatch bag. The 10 mm port site fascia and peritoneum were then closed under direct visualization using a Alejandro-Grzegorz device and 0 Vicryl suture. The abdomen was then desufflated and the remaining ports removed. All skin incisions were closed using 4-0 Monocryl running subcuticular sutures. She tolerated the procedure well. We will start oral and IV pain medication as well as a clear liquid diet. Once she is tolerating clears, has good pain control with oral pain medications, is ambulating well, we will discharge her home. Job ID: [id number] DocumentID: [id number] Dictated Date: 08/25/2020 18:13:13 Access Rep Date: 08/26/2020 03:35:32 Dictated By: CHARLOTTE SINGLETON MD
[2020-08-26] MEDS: LACTATED RINGERS 1,000 ML IV SCH (03:46)
[2020-08-26] MEDS: PIPERACILLIN/TAZOBACTAM (BULK) 4.5 GM in NS (IVPB) 100 ML IV SCH (03:50)
[2020-08-26 04:34] VITALS: BP 109/73
[2020-08-26 07:14] VITALS: BP 117/77
[2020-08-26] MEDS: ONDANSETRON 4 MG/2 ML (SDV) Z0FRAN IVP PRN (08:11)
[2020-08-26 08:24] VITALS: BP 117/77
--- NOTE | 2020-08-27 13:16 | Anesthesia-General Post-Op ---
General Post Op Complications Complications None Follow Up Care/Instructions Patient Instructions None needed. Anesthesia/Patient Condition Patient Condition Pt discharged. Chart reviewed. No apparent adverse anesthesia problems. READING,JOLLY [place] CRNA Aug 27, 2020 13:16
== END 2020-08-26 08:26 | disposition home or self-care (01) ==
LOC: EDUNIT# 14:00 → ER 14:02 → 4TH 16:30 → UNDOADMOB 16:30 → SDC 16:30 → UNDODISOB 08-26 08:26 → SDC 08-26 08:26
PROVIDERS: ATTEND Surgery
DX: K35.80 Unspecified acute appendicitis (principal); E11.9 Type 2 diabetes mellitus without complications; F41.9 Anxiety disorder, unspecified; F32.9 Major depressive disorder, single episode, unspecified; Z80.0 Family history of malignant neoplasm of digestive organs; Z79.899 Other long term (current) drug therapy; Z88.1 Allergy status to other antibiotic agents; Z88.0 Allergy status to penicillin; Z88.5 Allergy status to narcotic agent
CPT/HCPCS: 36415; 74177; 80048; 80053; 81000; 84703; 85007; 85025; 85027; 86141; 87081; 87636; 88304; 96374

== ENCOUNTER 2020-09-17 14:19 | Outpatient (RCR) | payer OTHER ==
[~2020-09-17 14:19] MED LIST changes: +ACET325T38 PO; +ESCI20TA39 PO; +HYDR-3817 PO; +LACT1CAP72 PO; +MULT-1136 PO; +NORE1PAT7 TD; +SPIR50TA4 PO
== END 2020-09-17 16:00 | disposition home or self-care (01) ==
PROVIDERS: ATTEND Nurse Practitioner
DX: S43.432A Superior glenoid labrum lesion of left shoulder, initial encounter (principal); M75.02 Adhesive capsulitis of left shoulder; X58.XXXA Exposure to other specified factors, initial encounter

== ENCOUNTER → 2020-11-07 | Outpatient (CLI) | payer OTHER | LOC: LAB 11:52 | PROVIDERS: ATTEND Nurse Practitioner Family | DX: R21 Rash and other nonspecific skin eruption (principal) | CPT/HCPCS: 36415; 86003 ==

== ENCOUNTER → 2020-11-20 | Outpatient (CLI) | payer OTHER ==
[2020-11-20 12:19] LABS: BASOPHILS % (AUTO) 0 % (0-10); EOSINOPHILS # (AUTO) 0.1 10^3/uL (0.0-0.3); EOSINOPHILS % (AUTO) 1 % (0-10); HEMATOCRIT 40 % (35-52); LYMPHOCYTES # (AUTO) 2.3 10^3/uL (1.0-4.0); LYMPHOCYTES % (AUTO) 19 % (12-44); MEAN CORPUSCULAR HEMOGLOBIN 27 pg (25-34); MEAN CORPUSCULAR HGB CONC 32 g/dL (32-36); MEAN CORPUSCULAR VOLUME 85 fL (80-99); MEAN PLATELET VOLUME 10.9 fL (9.0-12.2); MONOCYTES # (AUTO) 0.7 10^3/uL (0.0-1.0); MONOCYTES % (AUTO) 6 % (0-12); NEUTROPHILS # (AUTO) 8.7 10^3/uL (1.8-7.8); NEUTROPHILS % (AUTO) 74 % (42-75); PLATELET COUNT 311 10^3/uL (130-400); WHITE BLOOD COUNT 11.8 10^3/uL (4.3-11.0)
[2020-11-20 13:02] LABS: ALBUMIN 3.7 GM/DL (3.2-4.5); BILIRUBIN,TOTAL 0.2 MG/DL (0.1-1.0); CREATININE SERUM 0.69 MG/DL (0.60-1.30); FREE T4 (FREE THYROXINE) 1.1 NG/DL (0.70-1.48); POTASSIUM 3.9 MMOL/L (3.6-5.0); TOTAL PROTEIN 7.3 GM/DL (6.4-8.2)
[2020-11-20 13:11] LABS: ERYTHROCYTE SEDIMENTATION RATE 20 MM/HR (0-20)
== END ==
LOC: LAB 11:51
PROVIDERS: ATTEND Nurse Practitioner Family
DX: E03.9 Hypothyroidism, unspecified (principal); R53.83 Other fatigue; R21 Rash and other nonspecific skin eruption; M25.50 Pain in unspecified joint
CPT/HCPCS: 36415; 80053; 82306; 82784; 83036; 83516; 83520; 84439; 84443; 85025; 85652; 86038; 86039; 86141

== ENCOUNTER → 2020-12-25 | Outpatient (CLI) | payer OTHER ==
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
== END ==
LOC: RAD 16:37
PROVIDERS: ATTEND Nurse Practitioner Family
DX: M25.512 Pain in left shoulder (principal); V89.2XXA Person injured in unspecified motor-vehicle accident, traffic, initial encounter
CPT/HCPCS: 71046; 73030

== ENCOUNTER → 2021-01-01 | Outpatient (CLI) | payer OTHER ==
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
== END ==
LOC: RAD 15:30
PROVIDERS: ATTEND Nurse Practitioner Family
DX: S06.0X9A Concussion with loss of consciousness of unspecified duration, initial encounter (principal); V89.2XXA Person injured in unspecified motor-vehicle accident, traffic, initial encounter
CPT/HCPCS: 70551

== ENCOUNTER → 2021-01-21 | Outpatient (CLI) | payer OTHER ==
[~2021-01-21] MED LIST changes: +MONT-40 PO; -MONT10TA32 PO
--- NOTE | 2021-01-21 15:08 | Diagnostic Imaging Report ---
INDICATION: Thyroid carcinoma. COMPARISON: Correlation is made with prior thyroid ultrasound from 02/18/2020. FINDINGS: Right lobe is surgically absent. Left lobe of the thyroid measures 5.2 x 1.4 x 1.9 cm. Isthmus is 3 mm in thickness. Hypoechoic nodule in mid left lobe measures 6 mm x 4 mm x 7 mm. Nodule more inferiorly in the left lobe measures 4 mm x 5 mm x 3 mm. Hypoechoic nodule in the lower pole measures 1.5 x 1.0 x 0.6 cm. This is similar to prior exam. No other masses are identified. IMPRESSION: Surgically absent right lobe. There are left lobe thyroid nodules, similar to examination from one year earlier. Dictated by: Dictated on workstation # [id number]
== END ==
LOC: RAD 12:30
PROVIDERS: ATTEND Internal Medicine
DX: C73 Malignant neoplasm of thyroid gland (principal); E04.2 Nontoxic multinodular goiter; Z90.89 Acquired absence of other organs
CPT/HCPCS: 76536

== ENCOUNTER → 2021-05-26 | Outpatient (CLI) | payer OTHER | LOC: ORTHO 11:32 | PROVIDERS: ATTEND Orthopaedic Surgery | DX: S62.329D Displaced fracture of shaft of unspecified metacarpal bone, subsequent encounter for fracture with routine healing (principal); X58.XXXD Exposure to other specified factors, subsequent encounter | CPT/HCPCS: 29130; G0463 ==

== ENCOUNTER → 2021-06-16 | Outpatient (CLI) | payer OTHER ==
[~2021-06-16] MED LIST changes: +OMEP20TA56 PO; -OMEP20TA7 PO
[2021-06-16 11:54] LABS: BASOPHILS % (AUTO) 0 % (0-10); EOSINOPHILS # (AUTO) 0.1 10^3/uL (0.0-0.3); EOSINOPHILS % (AUTO) 1 % (0-10); HEMATOCRIT 42 % (35-52); HEMOGLOBIN 13.7 g/dL (11.5-16.0); LYMPHOCYTES # (AUTO) 1.8 10^3/uL (1.0-4.0); LYMPHOCYTES % (AUTO) 21 % (12-44); MEAN CORPUSCULAR HEMOGLOBIN 26 pg (25-34); MEAN CORPUSCULAR HGB CONC 32 g/dL (32-36); MEAN CORPUSCULAR VOLUME 81 fL (80-99); MEAN PLATELET VOLUME 11.4 fL (9.0-12.2); MONOCYTES # (AUTO) 0.5 10^3/uL (0.0-1.0); MONOCYTES % (AUTO) 6 % (0-12); NEUTROPHILS # (AUTO) 6.4 10^3/uL (1.8-7.8); NEUTROPHILS % (AUTO) 72 % (42-75); PLATELET COUNT 276 10^3/uL (130-400); WHITE BLOOD COUNT 8.9 10^3/uL (4.3-11.0)
[2021-06-16 12:06] LABS: ALBUMIN 3.9 GM/DL (3.2-4.5); BILIRUBIN,TOTAL 0.4 MG/DL (0.1-1.0); CALCIUM 9.1 MG/DL (8.5-10.1); CREATININE SERUM 0.72 MG/DL (0.60-1.30); POTASSIUM 3.8 MMOL/L (3.6-5.0); TOTAL PROTEIN 7.4 GM/DL (6.4-8.2)
[2021-06-16 12:27] LABS: FREE T4 (FREE THYROXINE) 1.06 NG/DL (0.70-1.48)
== END ==
LOC: LAB 11:20
PROVIDERS: ATTEND Nurse Practitioner Family
DX: E04.1 Nontoxic single thyroid nodule (principal); L68.0 Hirsutism; D50.9 Iron deficiency anemia, unspecified; E55.9 Vitamin D deficiency, unspecified; R73.02 Impaired glucose tolerance (oral)
CPT/HCPCS: 36415; 80053; 82306; 82607; 82728; 83036; 83540; 83550; 84439; 84443; 85025

== ENCOUNTER → 2021-06-23 | Outpatient (CLI) | payer OTHER ==
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
== END ==
LOC: ORTHO 10:07
PROVIDERS: ATTEND Orthopaedic Surgery
DX: S62.354D Nondisplaced fracture of shaft of fourth metacarpal bone, right hand, subsequent encounter for fracture with routine healing (principal); X58.XXXD Exposure to other specified factors, subsequent encounter
CPT/HCPCS: 73130; G0463; 99213

== ENCOUNTER → 2021-09-22 | Outpatient (CLI) | payer OTHER ==
[~2021-09-22] MED LIST changes: +HYDR-3922 PO
[2021-09-22 15:41] LABS: BASOPHILS % (AUTO) 0 % (0-10); EOSINOPHILS # (AUTO) 0.1 10^3/uL (0.0-0.3); EOSINOPHILS % (AUTO) 1 % (0-10); HEMATOCRIT 40 % (35-52); HEMOGLOBIN 13.3 g/dL (11.5-16.0); LYMPHOCYTES # (AUTO) 2.2 X 10^3 (1.0-4.0); LYMPHOCYTES % (AUTO) 26 % (12-44); MEAN CORPUSCULAR HEMOGLOBIN 27 pg (25-34); MEAN CORPUSCULAR HGB CONC 33 g/dL (32-36); MEAN CORPUSCULAR VOLUME 80 fL (80-99); MEAN PLATELET VOLUME 11.2 fL (9.0-12.2); MONOCYTES # (AUTO) 0.7 X 10^3 (0.0-1.0); MONOCYTES % (AUTO) 8 % (0-12); NEUTROPHILS # (AUTO) 5.6 X 10^3 (1.8-7.8); NEUTROPHILS % (AUTO) 65 % (42-75); PLATELET COUNT 300 10^3/uL (130-400); WHITE BLOOD COUNT 8.6 10^3/uL (4.3-11.0)
[2021-09-22 15:58] LABS: ERYTHROCYTE SEDIMENTATION RATE 14 MM/HR (0-20)
[2021-09-22 16:03] LABS: ALBUMIN 3.8 GM/DL (3.2-4.5)
[2021-09-22 16:04] LABS: POTASSIUM 3.5 MMOL/L (3.6-5.0)
[2021-09-22 16:05] LABS: CALCIUM 8.7 MG/DL (8.5-10.1)
[2021-09-22 16:06] LABS: TOTAL PROTEIN 7.2 GM/DL (6.4-8.2)
[2021-09-22 16:08] LABS: BILIRUBIN,TOTAL 0.3 MG/DL (0.1-1.0)
[2021-09-22 16:10] LABS: CREATININE SERUM 0.76 MG/DL (0.60-1.30)
== END ==
LOC: LAB 15:11
PROVIDERS: ATTEND Nurse Practitioner Family
DX: R51.9 Headache, unspecified (principal)
CPT/HCPCS: 36415; 80053; 85025; 85652

== ENCOUNTER 2021-09-23 07:50 | Emergency (ER) | payer OTHER ==
[~2021-09-23] VITALS: Ht 157.4 cm; Wt 77.1 kg
[~2021-09-23 07:50] MED LIST changes: -HYDR-3922 PO
--- NOTE | 2021-09-23 08:24 | ED General ---
General Chief Complaint: Head/Cervical Problems Stated Complaint: CONFUSION, KNOT ON BACK OF HEAD Nursing Triage Note: PT AMB TO RM 6. PT STATED THAT SHE HAD A HEADACHE FOR 1 WEEK AND HAD A POSSIBLY HEAD INJURY. Source of Information: Patient Exam Limitations: No Limitations History of Present Illness Date Seen by Provider: Sep 23, 2021 Time Seen by Provider: 08:00 Initial Comments Patient is a 21-year-old female who presents to the emergency department today at the direction of her mother chief complaint of abnormal behavior and speech pattern. Mom states that she spoke with her yesterday and she sounded "off". They went to Dr. Dash's office yesterday afternoon and were seen by one of the nurse practitioners. She had labs drawn which I have reviewed which were all within normal limits. Mom states that she saw her this morning and noticed that her speech pattern was very slow and deliberate and she seems confused. Apparently she was complaining of a headache yesterday. She has taken some ibuprofen/Tylenol. No fevers or chills or URI symptoms. No cough, shortness of breath, nausea vomiting. No urinary complaints, no diarrhea. Last menstrual cycle was a month ago. She has a NuvaRing. She is on citalopram, prazosin for nightmares and Trileptal for mood. Pill counts appear correct. Mom was concerned because she thought she felt a "lump" on the back of her head. The patient does not recall any trauma/falls. Patient does live alone but occasionally spends the night with her mom. All other review of systems reviewed and negative except as stated. Timing/Duration: 24 Hours Severity: Moderate Associated Systoms: Headaches, Malaise Allergies and Home Medications Allergies Coded Allergies: vancomycin (Unverified Allergy, Intermediate, BRIGHT RED FACE WITH NO BREATHING DIFFICULTY, 03/17/15) Penicillins (Unverified Allergy, Mild, RASH,N/V; HAS RECEIVED ANCEF WITHOUT PROBLEM, 11/22/12) codeine (Unverified Allergy, Mild, STRONG FAMILY HX OF REACTIONS, 10/10/08) hydrocodone (Verified Allergy, Unknown, 12/23/17) Sulfa (Sulfonamide Antibiotics) (Unverified Adverse Reaction, Unknown, STRONG FAMILY HX OF REACTIONS, 03/17/15) Patient Home Medication List Home Medication List Reviewed: Yes Acetaminophen (Tylenol) 325 Mg Tablet, 650 MG PO Q6H PRN for PAIN-MILD (1-4), (Reported) Entered as Reported by: ARTEM CELESTIN on 08/25/20 1014 Cetirizine HCl (Zyrtec) 10 Mg Tablet, 10 MG PO HS, (Reported) Entered as Reported by: ARTEM CELESTIN on 08/25/20 1014 Escitalopram Oxalate (Escitalopram Oxalate) 20 Mg Tablet, 20 MG PO HS, (Reported) Entered as Reported by: ARTEM CELESTIN on 08/25/20 1014 Hydralazine HCl (Hydralazine HCl) 10 Mg Tablet, 10 MG PO TID Prescribed by: YAKELIN RAMOS on 09/23/21 1107 Hydrocodone/Acetaminophen (Hydrocodone-Acetamin 7.5-325) 1 Each Tablet, 1 EACH PO Q4H Prescribed by: CHARLOTTE SINGLETON on 08/25/20 1721 Lactobacillus Combo No.10 (Probiotic) 1 Each Capsule, 1 EACH PO HS, (Reported) Entered as Reported by: ARTEM CELESTIN on 08/25/20 1014 Multivitamin (Multivitamin) 1 Each Tablet, 1 EACH PO HS, (Reported) Entered as Reported by: ARTEM CELESTIN on 08/25/20 1014 Norelgestromin/Ethin.estradiol (Xulane Patch) 1 Each Patch.tdwk, 1 EACH TD TUESDAY, (Reported) Entered as Reported by: ARTEM CELESTIN on 08/25/20 1014 Spironolactone (Spironolactone) 50 Mg Tablet, 50 MG PO HS, (Reported) Entered as Reported by: ARTEM CELESTIN on 08/25/20 1014 Review of Systems Review of Systems Constitutional: see HPI EENTM: no symptoms reported Respiratory: no symptoms reported Cardiovascular: no symptoms reported Gastrointestinal: no symptoms reported Genitourinary: no symptoms reported Musculoskeletal: no symptoms reported Psychiatric/Neurological: Other ("speech is not right") Past Nhcocox-Zdvduu-Jenzdc Hx Patient Social History Tobacco Use?: No Substance use?: No Alcohol Use?: No Pt feels they are or have been: Unable to obtain Immunizations Up To Date Tetanus Booster (TDap): Less than 5yrs PED Vaccines UTD: Yes Influenza Vaccine Up-to-Date: Yes; Up-to-Date First/Initial COVID19 Vaccinat: JAN 2020 Second COVID19 Vaccination Nathen: FEB 2020 Third COVID19 Vaccination Date: JAN 2020 Seasonal Allergies Seasonal Allergies: Yes Past Medical History Surgery/Hospitalization HX: PARTIAL THYROIDECTOMY D/T CANCER,, TONSILLECTOMY, RIGHT KNEE SURGERY Surgeries: Yes Ear Surgery, Thyroidectomy Respiratory: No Pneumonia Cardiac: No Neurological: Yes Headaches /Migraines Reproductive Disorders: Yes Female Reproductive Disorders: Denies, Polycystic Ovarian Dis Sexually Transmitted Disease: No HIV/AIDS: No Genitourinary: No Gastrointestinal: Yes Gastroesophageal Reflux, Irritable Bowel Musculoskeletal: Yes (R FOOT FRACTURE) Fractures Endocrine: Yes (PART OF THYROID TAKEN OUT) Diabetes, Non-Insulin dep HEENT: Yes ( TONSILS OUT) Chronic Ear Infection, Tonsilitis Loss of Vision: Bilateral Hearing Impairment: Denies Cancer: No (THYROID PRE-CANCEROUS CELLS) Psychosocial: No Anxiety, Depression Integumentary: No Blood Disorders: No Adverse Reaction/Blood Tranf: No (N/A) Family Medical History Alcoholism grandparents Arthritis grandparents Asthma grandparents Colon cancer grandparents Diabetes mellitus 19 MOTHER grandparents FH: Hodgkin's disease 19 MOTHER Hypertension 19 FATHER 19 MOTHER grandparents Cancer, Diabetes, Hypertension Physical Exam Vital Signs Vital Signs - First Documented 09/23/21 07:56 Temp 36.6 Pulse 66 Resp 16 B/P (MAP) 182/123 (142) Pulse Ox 99 O2 Delivery Room Air Capillary Refill : Less Than 3 Seconds Height, Weight, BMI Height: 5'1.00" Weight: 160lbs. 0.0oz. [id number]; 31.00 BMI Method:Stated General Appearance: No Apparent Distress, WD/WN Eyes: Bilateral Eye Normal Inspection, Bilateral Eye PERRL, Bilateral Eye EOMI HEENT: PERRL/EOMI, Pharynx Normal, Moist Mucous Membranes Neck: Full Range of Motion, Normal Inspection, Supple Respiratory: Lungs Clear, Normal Breath Sounds, No Accessory Muscle Use, No Respiratory Distress Cardiovascular: Regular Rate, Rhythm, Normal Peripheral Pulses Gastrointestinal: Non Tender, Soft Extremity: Normal Inspection, Normal Range of Motion Neurologic/Psychiatric: Alert, Oriented x3, No Motor/Sensory Deficits, Normal 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, 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 Norm as Tested; No Abnormal Cerebellar Tests Skin: Normal Color, Warm/Dry, Other (healing abrasions to dorsum right hand) Progress/Results/Core Measures Suspected Sepsis SIRS Temperature: Pulse: 66 Respiratory Rate: 16 Blood Pressure 182 /123 Mean: 142 Results/Orders Lab Results Laboratory Tests Test 09/23/21 08:25 09/23/21 08:30 Range/Units Salicylates Level < 5.0 L 5.0-20.0 MG/DL Acetaminophen Level < 10 L 10-30 UG/ML Serum Alcohol < 10 <10 MG/DL Urine Color YELLOW Urine Clarity CLEAR Urine pH 6.0 5-9 Urine Specific [place] 1.015 L 1.016-1.022 Urine Protein NEGATIVE NEGATIVE Urine Glucose (UA) NEGATIVE NEGATIVE Urine Ketones NEGATIVE NEGATIVE Urine Nitrite NEGATIVE NEGATIVE Urine Bilirubin NEGATIVE NEGATIVE Urine Urobilinogen 0.2 < = 1.0 MG/DL Urine Leukocyte Esterase 2+ H NEGATIVE Urine RBC (Auto) TRACE-I H NEGATIVE Urine RBC RARE /HPF Urine WBC 25-50 H /HPF Urine Squamous Epithelial Cells 10-25 H /HPF Urine Crystals NONE /LPF Urine Bacteria FEW H /HPF Urine Casts NONE /LPF Urine Mucus NEGATIVE /LPF Urine Culture Indicated YES Urine Opiates Screen NEGATIVE NEGATIVE Urine Oxycodone Screen NEGATIVE NEGATIVE Urine Methadone Screen NEGATIVE NEGATIVE Urine Propoxyphene Screen NEGATIVE NEGATIVE Urine Barbiturates Screen NEGATIVE NEGATIVE Ur Tricyclic Antidepressants Screen NEGATIVE NEGATIVE Urine Phencyclidine Screen NEGATIVE NEGATIVE Urine Amphetamines Screen NEGATIVE NEGATIVE Urine Methamphetamines Screen NEGATIVE NEGATIVE Urine Benzodiazepines Screen NEGATIVE NEGATIVE Urine Cocaine Screen NEGATIVE NEGATIVE Urine Cannabinoids Screen NEGATIVE NEGATIVE My Orders Orders - YAKELIN RAMOS MD Ed Iv/Invasive Line Start (09/23/21 08:25) Ua Culture If Indicated (09/23/21 08:25) Drug Screen Stat (Urine) (09/23/21 08:25) Salicylate (09/23/21 08:25) Acetaminophen (09/23/21 08:25) Alcohol (09/23/21 08:25) Urine Culture (09/23/21 08:30) Ct Head Wo (09/23/21 09:11) Hydralazine Injection (Apresoline Inject (09/23/21 09:15) Hydralazine Injection (Apresoline Inject (09/23/21 10:30) Medications Given in ED Current Medications Medications Dose Ordered Sig/Keon Route Start Time Stop Time Status Last Admin Dose Admin Hydralazine HCl 10 mg ONCE ONCE IV 09/23/21 09:15 09/23/21 09:16 DC 09/23/21 09:19 10 MG Hydralazine HCl 10 mg ONCE ONCE IV 09/23/21 10:30 09/23/21 10:31 DC 09/23/21 10:44 10 MG Vital Signs/I&O 09/23/21 07:56 Temp 36.6 Pulse 66 Resp 16 B/P (MAP) 182/123 (142) Pulse Ox 99 O2 Delivery Room Air Capillary Refill : Less Than 3 Seconds Blood Pressure Mean: 142 Progress Note #1: Time: :11 Progress Note Discussed with Dr. Dash, recommends starting her on some hydralazine here in the department and sending her home on medication potentially hydralazine 10 mg 3 times daily. She also does recommend CT scan of the brain without contrast Progress Note #2: Time: :11 Progress Note BP 141/104; not feeling any different. Will give an additional dose of the hydralazine I think. I talked with her about additional OTC meds - she has been taking a little OTC benadryl and zyrtec - non in the last 24 hours however. States she goes to bed around 9-10p. Eating and drinking ok. No illicit drugs. no rashes tick bites or swelling anywhere. Will continue to monitor Progress Note #3: Time: 11:04 Progress Note Blood pressure 137/82 at this time. Will discharge home on hydralazine 3 times daily to follow-up with Dr. Dash next Tuesday. Patient was alone in her room when I went back and talked to her. She still has a little bit of a blunted affect. Her pulse had gone up to 100. She is not tearful. She does not really appear anxious. I asked her about suicidal ideation she denied it. No thoughts of harming herself or anyone else. She states she feels safe at home. It is kind of unusual that her pulse should jump from the 60s and 70s into the 100 range (sinus tach). This is after her second dose of hydralazine 10 mg. I am going to add on thyroid functions to follow with Dr. Dash in a week. Patient seems comfortable with plan of care. She has no questions. Diagnostic Imaging Diagonstic Imaging: CT Comments [facility], [place] NAME: LUISA RODRIGUEZ [facility] REC#: [id number] PT STATUS: REG ER : 2000 PHYSICIAN: YAKELIN RAMOS MD ADMIT DATE: 09/23/21/ER Draft Date of Exam:09/23/21 CT HEAD WO PROCEDURE: CT head without contrast. TECHNIQUE: Multiple contiguous axial images were obtained through the brain without the use of intravenous contrast. Auto Exposure Controls were utilized during the CT exam to meet ALARA standards for radiation dose reduction. INDICATION: Headache. Correlation is made with prior head CT from 12/17/2014. Ventricles and sulci are within normal limits. No sulcal effacement or midline shift is identified. No acute intra-axial or extra-axial hemorrhage is detected. Cisterns are patent. Visualized paranasal sinuses are clear. IMPRESSION: No acute intracranial process is detected. Dictated on workstation # [id number] Dict: 09/23/2129 Trans: 09/23/21 0936 [id number] Interpreted by: RONDA BENTON MD Electronically signed by: Departure Impression Primary Impression: High blood pressure Qualified Codes: I10 - Essential (primary) hypertension Disposition: HOME, SELF-CARE Condition: Improved Departure-Patient Inst. Decision time for Depature: 11:05 Referrals: BILLY DASH MD (PCP/Family) Primary Care Physician Patient Instructions: High Blood Pressure ED Add. Discharge Instructions: Drink plenty of fluids to stay well-hydrated. Start the hydralazine 10 mg 3 times daily. Please call Dr. Dash's office for a follow-up appointment next Tuesday. Keep a record of your blood pressure over the course of the next week. Take it once or twice daily at different times over the course of the next week. Bring this to your appointment next week. Return to the emergency department for fever, vomiting or other worsening symptoms. Continue your home daily medications. Scripts Hydralazine HCl (Hydralazine HCl) 10 Mg Tablet 10 MG PO TID, #45 TAB Prov: YAKELIN RAMOS MD 09/23/21 Work/School Note: Work Release Form Date Seen in the Emergency Department: Sep 23, 2021 Return to Work: Sep 24, 2021 Copy Copies To 1: BILLY DASH MD, KATHRYN M MD Sep 23, 2021 08:24
[2021-09-23 08:40] LABS: BILIRUBIN,URINE NEGATIVE (NEGATIVE); CLARITY,URINE CLEAR; COLOR,URINE YELLOW; GLUCOSE, URINE (UA) NEGATIVE (NEGATIVE); KETONES,URINE NEGATIVE (NEGATIVE); LEUKOCYTE ESTERASE ,URINE 2+ (NEGATIVE); NITRITE,URINE NEGATIVE (NEGATIVE); PROTEIN,URINE NEGATIVE (NEGATIVE)
[2021-09-23 08:51] LABS: SALICYLATE < 5.0 MG/DL (5.0-20.0)
[2021-09-23 08:55] LABS: BACTERIA,URINE FEW /HPF; RBC,URINE RARE /HPF; WBC,URINE 25-50 /HPF
[2021-09-23 08:56] LABS: ACETAMINOPHEN < 10 UG/ML (10-30)
[2021-09-23 09:04] LABS: AMPHETAMINE SCREEN, URINE NEGATIVE (NEGATIVE); BARBITURATE SCREEN URINE NEGATIVE (NEGATIVE); BENZODIAZEPINES SCREEN URINE NEGATIVE (NEGATIVE); CANNABINOID SCREEN, URINE NEGATIVE (NEGATIVE); COCAINE SCREEN URINE NEGATIVE (NEGATIVE); METHADONE STAT NEGATIVE (NEGATIVE); OPIATE SCREEN URINE NEGATIVE (NEGATIVE); OXYCODONE STAT NEGATIVE (NEGATIVE); PROPOXYPHENE STAT NEGATIVE (NEGATIVE); TRICYCLIC ANTIDEPRESSANTS SCRE NEGATIVE (NEGATIVE)
[2021-09-23] MEDS ORDERED: hydrALAZINE (APESOLINE) 20 MG/ML VIAL IV ONE ×2 (09:15→10:30)
--- NOTE | 2021-09-23 09:37 | Diagnostic Imaging Report ---
PROCEDURE: CT head without contrast. TECHNIQUE: Multiple contiguous axial images were obtained through the brain without the use of intravenous contrast. Auto Exposure Controls were utilized during the CT exam to meet ALARA standards for radiation dose reduction. INDICATION: Headache. Correlation is made with prior head CT from 12/17/2014. Ventricles and sulci are within normal limits. No sulcal effacement or midline shift is identified. No acute intra-axial or extra-axial hemorrhage is detected. Cisterns are patent. Visualized paranasal sinuses are clear. IMPRESSION: No acute intracranial process is detected. Dictated by: Dictated on workstation # [id number]
[2021-09-23] MEDS ORDERED: HYDR-3922 PO (11:07)
[2021-09-23 11:42] VITALS: BP 139/89
[2021-09-23 12:01] LABS: FREE T4 (FREE THYROXINE) 1.05 NG/DL (0.70-1.48)
== END 2021-09-23 11:42 | disposition home or self-care (01) ==
LOC: EDUNIT# 07:50 → ER 07:53
DX: I10 Essential (primary) hypertension (principal); F51.5 Nightmare disorder; Z79.899 Other long term (current) drug therapy
CPT/HCPCS: 70450; 80306; 81000; 84439; 84443; 84481; 87088; 99284; G0480 ×3; 36415; 80320; 80329

== ENCOUNTER → 2021-09-28 | Outpatient (CLI) | payer OTHER ==
[~2021-09-28] MED LIST changes: +HYDR-3922 PO
== END ==
LOC: CARD 08:30
PROVIDERS: ATTEND Nurse Practitioner Family
DX: R00.0 Tachycardia, unspecified (principal)
CPT/HCPCS: 93225; 93226

== ENCOUNTER 2021-10-13 14:32 | Outpatient (CLI) | payer OTHER ==
[2021-10-13 14:45] VITALS: BP 0/0
[2021-10-13 14:55] LABS: BILIRUBIN,URINE NEGATIVE (NEGATIVE); CLARITY,URINE CLEAR; COLOR,URINE YELLOW; GLUCOSE, URINE (UA) NEGATIVE (NEGATIVE); KETONES,URINE NEGATIVE (NEGATIVE); LEUKOCYTE ESTERASE ,URINE NEGATIVE (NEGATIVE); NITRITE,URINE NEGATIVE (NEGATIVE); PROTEIN,URINE NEGATIVE (NEGATIVE)
[2021-10-13 15:04] LABS: BACTERIA,URINE FEW /HPF; RBC,URINE RARE /HPF; WBC,URINE RARE /HPF
== END 2021-10-13 14:45 | disposition home or self-care (01) ==
LOC: SDC 14:32
PROVIDERS: ATTEND Nurse Practitioner Family
DX: N39.0 Urinary tract infection, site not specified (principal)
CPT/HCPCS: 51798; 81000; 87088

== ENCOUNTER → 2021-10-21 | Outpatient (CLI) | payer OTHER ==
[2021-10-21 14:08] VITALS: BP 131/72
--- NOTE | 2021-10-21 17:02 | Cardiology Stress Test Report ---
Stress Test Report Date of Procedure/Referring: Date of Procedure: Oct 21, 2021 PCP Billy Dash MD Admitting Physician Admitting Physician: Attending Physician: Ashish Koroma MD Indications: CP Baseline Heart Rate: 77 Baseline Blood Pressure: Blood Pressure Systolic: 131 Blood Pressure Diastolic: 72 Baseline EKG: Baseline EKG: NSR Summary/Conclusion: Summary: In summary, the patient started exercising with a baseline heart rate, blood pressure and EKG mentioned above Patient was able to exercise for a total of 9 minutes on Pradeep protocol, METs 10.5 Maximum heart rate 172 Maximum blood pressure 179/94 Stress EKG, Minimal nondiagnostic changes Recovery EKG , Return to baseline Conclusion: 1. Good exercise tolerance for a total of 9 minutes on Pradeep protocol, 10.5 METs, achieving 86 percent of maximum expected heart rate 2. Minimal nondiagnostic EKG changes with exercise returned to baseline during recovery 3. No arrhythmia was noted Copy Copies To 1: BILLY DASH MD, BASHAR J MD Oct 21, 2021 17:02
== END ==
LOC: CARD 13:30
PROVIDERS: ATTEND Internal Medicine Cardiovascular Disease
DX: I25.10 Atherosclerotic heart disease of native coronary artery without angina pectoris (principal); I10 Essential (primary) hypertension
CPT/HCPCS: 93017; 93306

== ENCOUNTER → 2021-10-27 | Outpatient (CLI) | payer OTHER ==
--- NOTE | 2021-10-27 13:50 | Diagnostic Imaging Report ---
INDICATION: Foot pain status post fall on . EXAMINATION: Left foot, 3 views, on 10/27/2021. COMPARISON: 05/08/2020. FINDINGS: There is no evidence for an acute fracture or dislocation. The joint spaces are well maintained. There is no significant soft tissue swelling. IMPRESSION: No acute process. Dictated by: Dictated on workstation # [id number]
== END ==
LOC: RAD 11:40
PROVIDERS: ATTEND Nurse Practitioner Family
DX: M79.672 Pain in left foot (principal)
CPT/HCPCS: 73630

== ENCOUNTER → 2021-11-10 | Outpatient (CLI) | payer OTHER ==
--- NOTE | 2021-11-10 14:56 | Diagnostic Imaging Report ---
MRI brain without contrast Indication:Dizziness, headache and memory loss. Comparison:01/01/2021. Technique: Multiplanar, multisequence MRI of the brain was performed without contrast. Findings: There is no diffusion restriction present to suggest acute ischemia. There is no MR evidence of intracranial hemorrhage. There is no intracranial mass effect demonstrated. There is no abnormal extra-axial collection. Castillo and white matter signal characteristics appear within normal limits. The ventricular system is appropriate in size and configuration. The basilar cisterns are patent. Posterior fossa is unremarkable. There is normal alignment of the craniocervical junction. Pituitary gland is unremarkable. The pineal region appears normal. No orbital abnormality evident on this nondedicated exam. The paranasal sinuses and mastoid air cells are clear. Expected arterial and dural venous sinus flow voids are preserved. Impression: No MR evidence of an acute intracranial abnormality. There is no evidence of ischemia, hemorrhage, parenchymal signal abnormality, intracranial mass effect, or hydrocephalus. Dictated by: Dictated on workstation # [id number]
== END ==
LOC: RAD 14:00
PROVIDERS: ATTEND Nurse Practitioner Family
DX: R42 Dizziness and giddiness (principal); R51.9 Headache, unspecified; R41.3 Other amnesia; Z87.820 Personal history of traumatic brain injury
CPT/HCPCS: 70551

== ENCOUNTER → 2021-12-15 | Outpatient (CLI) | payer OTHER ==
[2021-12-15 11:27] LABS: BASOPHILS % (AUTO) 0 % (0-10); EOSINOPHILS # (AUTO) 0.1 10^3/uL (0.0-0.3); EOSINOPHILS % (AUTO) 1 % (0-10); HEMATOCRIT 43 % (35-52); HEMOGLOBIN 13.9 g/dL (11.5-16.0); LYMPHOCYTES # (AUTO) 2.5 10^3/uL (1.0-4.0); LYMPHOCYTES % (AUTO) 27 % (12-44); MEAN CORPUSCULAR HEMOGLOBIN 27 pg (25-34); MEAN CORPUSCULAR HGB CONC 32 g/dL (32-36); MEAN CORPUSCULAR VOLUME 83 fL (80-99); MONOCYTES # (AUTO) 0.4 10^3/uL (0.0-1.0); MONOCYTES % (AUTO) 4 % (0-12); NEUTROPHILS # (AUTO) 6.3 10^3/uL (1.8-7.8); NEUTROPHILS % (AUTO) 68 % (42-75); PLATELET COUNT 335 10^3/uL (130-400); WHITE BLOOD COUNT 9.3 10^3/uL (4.3-11.0)
[2021-12-15 11:45] LABS: ALBUMIN 4.2 GM/DL (3.2-4.5); BILIRUBIN,TOTAL 0.4 MG/DL (0.1-1.0); CALCIUM 9.1 MG/DL (8.5-10.1); CREATININE SERUM 0.75 MG/DL (0.60-1.30); POTASSIUM 3.7 MMOL/L (3.6-5.0); TOTAL PROTEIN 7.9 GM/DL (6.4-8.2)
[2021-12-15 12:08] LABS: FREE T4 (FREE THYROXINE) 0.96 NG/DL (0.70-1.48)
== END ==
LOC: LAB 10:58
PROVIDERS: ATTEND Nurse Practitioner Family
DX: I10 Essential (primary) hypertension (principal); E03.9 Hypothyroidism, unspecified; R73.9 Hyperglycemia, unspecified
CPT/HCPCS: 36415; 80053; 80061; 83036; 84439; 84443; 84481; 85025

== ENCOUNTER → 2022-01-15 | Outpatient (CLI) | payer OTHER ==
--- NOTE | 2022-01-15 19:27 | Diagnostic Imaging Report ---
HISTORY: Fall, left jaw pain and swelling. TECHNIQUE: 3 views of the mandible. COMPARISON: None. FINDINGS/ IMPRESSION: No displaced fracture of the mandible is seen. The temporomandibular joints appear to be normal in alignment. If there is persistent clinical concern, CT could be considered. Dictated by: Dictated on workstation # [id number]
== END ==
LOC: RAD 18:21
PROVIDERS: ATTEND Nurse Practitioner Family
DX: R68.84 Jaw pain (principal); R22.0 Localized swelling, mass and lump, head; W19.XXXA Unspecified fall, initial encounter
CPT/HCPCS: 70100

== ENCOUNTER → 2022-02-23 | Outpatient (CLI) | payer OTHER ==
--- NOTE | 2022-02-23 12:26 | Diagnostic Imaging Report ---
PROCEDURE: US Thyroid. TECHNIQUE: Multiple real-time grayscale images were obtained of the thyroid in various projections. INDICATION: History of thyroid cancer, status post right-sided thyroidectomy. Follow-up thyroid nodules. COMPARISON: 01/21/2021. FINDINGS: The right lobe of the thyroid is surgically absent. The left lobe measures 5.1 x 1.6 x 1.7 cm. There is a generalized heterogeneous echogenicity in the left lobe of the thyroid. The isthmus measures 0.3 cm in thickness. Nodules are again seen in the left lobe of the thyroid, the largest in the inferior pole demonstrating solid slightly hypoechoic features and measuring 1.5 x 0.7 x 0.9 cm. This has not significantly changed in size since the prior exam. Smaller nodules in the left lobe of the thyroid also are stable. Mildly prominent lymph nodes are seen in the right neck, with the largest adjacent to the jugular vein measuring 2.3 x 0.4 x 1.1 cm. This demonstrates normal reniform shape with preserved fatty hilum. IMPRESSION: 1. Stable nodules in the left lobe of the thyroid, the largest measuring 1.5 cm. Recommend continued surveillance with thyroid ultrasound in 12 months. 2. Stable right thyroidectomy changes. No evidence of recurrent thyroid tissue in the surgical bed. 3. Mildly prominent lymph nodes in the right neck with normal reniform shape and preserved fatty hilum. These are favored to be reactive. Dictated by: Dictated on workstation # [id number]
== END ==
LOC: RAD 09:00
PROVIDERS: ATTEND Internal Medicine
DX: E04.2 Nontoxic multinodular goiter (principal); Z85.850 Personal history of malignant neoplasm of thyroid; Z90.89 Acquired absence of other organs
CPT/HCPCS: 76536

== ENCOUNTER → 2022-04-14 | Outpatient (CLI) | payer OTHER ==
[2022-04-14 16:08] LABS: BASOPHILS % (AUTO) 0 % (0-10); EOSINOPHILS # (AUTO) 0.1 10^3/uL (0.0-0.3); EOSINOPHILS % (AUTO) 1 % (0-10); HEMATOCRIT 40 % (35-52); HEMOGLOBIN 13.4 g/dL (11.5-16.0); LYMPHOCYTES # (AUTO) 2.6 10^3/uL (1.0-4.0); LYMPHOCYTES % (AUTO) 29 % (12-44); MEAN CORPUSCULAR HEMOGLOBIN 28 pg (25-34); MEAN CORPUSCULAR HGB CONC 34 g/dL (32-36); MEAN CORPUSCULAR VOLUME 83 fL (80-99); MEAN PLATELET VOLUME 10.9 fL (9.0-12.2); MONOCYTES # (AUTO) 0.5 10^3/uL (0.0-1.0); MONOCYTES % (AUTO) 6 % (0-12); NEUTROPHILS # (AUTO) 5.7 10^3/uL (1.8-7.8); NEUTROPHILS % (AUTO) 64 % (42-75); PLATELET COUNT 257 10^3/uL (130-400); WHITE BLOOD COUNT 8.9 10^3/uL (4.3-11.0)
[2022-04-14 16:21] LABS: ALBUMIN 3.9 GM/DL (3.2-4.5); POTASSIUM 3.6 MMOL/L (3.6-5.0)
[2022-04-14 16:22] LABS: CALCIUM 8.5 MG/DL (8.5-10.1)
[2022-04-14 16:23] LABS: TOTAL PROTEIN 7.1 GM/DL (6.4-8.2)
[2022-04-14 16:25] LABS: BILIRUBIN,TOTAL 0.2 MG/DL (0.1-1.0)
[2022-04-14 16:27] LABS: CREATININE SERUM 0.81 MG/DL (0.60-1.30)
== END ==
LOC: LAB 15:42
PROVIDERS: ATTEND Surgery
DX: R59.0 Localized enlarged lymph nodes (principal)
CPT/HCPCS: 36415; 80053; 85025; 86611

== ENCOUNTER → 2022-05-11 | Outpatient (CLI) | payer OTHER ==
--- NOTE | 2022-05-11 14:24 | Diagnostic Imaging Report ---
INDICATION: Fracture of the 5th metacarpal, adult Y fractures not resulting from significant trauma, history of glucocorticoid use. COMPARISON: None available FINDINGS: AP Spine L1-L4: [BMD (g/cm2): 1.130] [T-Score: -0.6] [Z-Score: -1.1] [BMD Previous: NA] [BMD % Change: NA] LT Hip Neck: [BMD (g/cm2): 0.806] [T-Score: -1.7] [Z-Score: -2.1] LT Hip Total: [BMD (g/cm2):0.844] [T-Score:-1.3] [Z-Score: -1.7] [BMD Previous: NA] [BMD % Change: NA] RT Hip Neck: [BMD (g/cm2):0.813] [T-Score:-1.6] [Z-Score:-2.0] RT Hip Total: [BMD (g/cm2):0.852] [T-score:-1.2] [Z-Score:-1.7] [BMD Previous:NA] [BMD % Change:NA] *Indicates significant change from prior examination based on 95% confidence level. World Health Organization criteria for BMD interpretation classify patients as Normal (T-score at or above -1.0), Osteopenic (T-score between -1.0 and -2.5) or Osteoporotic (T-score at or below -2.5). LIMITATIONS AND MODIFICATION: None. IMPRESSION: 1. The bone mineral density is below the expected range for the patient's age. 2. Baseline examination. 3. See below National Osteoporosis Foundation guidelines on when to potentially initiate pharmacologic therapy. Based on the National Osteoporosis Foundation Guidelines, pharmacologic treatment should be initiated in any of the following, unless clinical conditions suggest otherwise: * Any patient with prior fragility fracture of the hip or vertebrae. A spine fracture indicates 5X risk for subsequent spine fracture and 2X risk for subsequent hip fracture. * Osteoporosis (T-score <-2.5). * Postmenopausal women and men age 50 and older with low bone mass/osteopenia (T-score between -1.0 and -2.5) by DXA and 10-year major osteoporotic fracture greater than 20% or a 10-year probability of hip fracture greater than 3%. These fracture risks are supplied above in the FRAX score, if applicable. * Clinician judgement and/or patient preferences may indicate treatment for people with 10-year fracture probabilities above or below these levels. Dictated by: Dictated on workstation # [id number]
== END ==
LOC: RAD 11:58
PROVIDERS: ATTEND Nurse Practitioner Family
DX: S62.308A Unspecified fracture of other metacarpal bone, initial encounter for closed fracture (principal); E55.9 Vitamin D deficiency, unspecified; Z79.52 Long term (current) use of systemic steroids; X58.XXXA Exposure to other specified factors, initial encounter
CPT/HCPCS: 77080

== ENCOUNTER 2022-05-18 18:00 | Emergency (ER) | payer OTHER ==
[~2022-05-18 18:00] MED LIST changes: +MONT-47 PO; -MONT10TA21 PO
--- NOTE | 2022-05-18 18:22 | ED Lower Extremity ---
General Stated Complaint: TWISTED ANCLE Source: patient Exam Limitations: no limitations History of Present Illness Date Seen by Provider: May 18, 2022 Time Seen by Provider: 18:18 Initial Comments Patient is a 22-year-old female presents ED with left lateral ankle pain. Patient states 1 hour ago she was going down the stairs missed a few steps rotating her left ankle inwards. She states she had immediate pain felt a pop. Was not able to stand or bear weight. She states she had a recent bone scan performed and noted early osteoporosis. Currently on calcium vitamin D. History of spontaneous fractures. She denies hitting her head, loss of consciousness, knee pain, back pain, pelvic pain. Denies taking thing for pain. Allergies and Home Medications Allergies Coded Allergies: vancomycin (Unverified Allergy, Intermediate, BRIGHT RED FACE WITH NO BREATHING DIFFICULTY, 03/17/15) Penicillins (Unverified Allergy, Mild, RASH,N/V; HAS RECEIVED ANCEF WITHOUT PROBLEM, 11/22/12) codeine (Unverified Allergy, Mild, STRONG FAMILY HX OF REACTIONS, 10/10/08) hydrocodone (Verified Allergy, Unknown, 12/23/17) Sulfa (Sulfonamide Antibiotics) (Unverified Adverse Reaction, Unknown, STRONG FAMILY HX OF REACTIONS, 03/17/15) Patient Home Medication List Home Medication List Reviewed: Yes Acetaminophen (Tylenol) 325 Mg Tablet, 650 MG PO Q6H PRN for PAIN-MILD (1-4), (Reported) Entered as Reported by: ARTEM CELESTIN on 08/25/20 1014 Cetirizine HCl (Zyrtec) 10 Mg Tablet, 10 MG PO HS, (Reported) Entered as Reported by: ARTEM CELESTIN on 08/25/20 1014 Escitalopram Oxalate (Escitalopram Oxalate) 20 Mg Tablet, 20 MG PO HS, (Reported) Entered as Reported by: ARTEM CELESTIN on 08/25/20 1014 Hydralazine HCl (Hydralazine HCl) 10 Mg Tablet, 10 MG PO TID Prescribed by: YAKELIN RAMOS on 09/23/21 1107 Hydrocodone/Acetaminophen (Hydrocodone-Acetamin 7.5-325) 1 Each Tablet, 1 EACH PO Q4H Prescribed by: CHARLOTTE SINGLETON on 08/25/20 1721 Lactobacillus Combo No.10 (Probiotic) 1 Each Capsule, 1 EACH PO HS, (Reported) Entered as Reported by: ARTEM CELESTIN on 08/25/20 1014 Multivitamin (Multivitamin) 1 Each Tablet, 1 EACH PO HS, (Reported) Entered as Reported by: ARTEM CELESTIN on 08/25/20 1014 Norelgestromin/Ethin.estradiol (Xulane Patch) 1 Each Patch.tdwk, 1 EACH TD TUESDAY, (Reported) Entered as Reported by: ARTEM CELESTIN on 08/25/20 1014 Spironolactone (Spironolactone) 50 Mg Tablet, 50 MG PO HS, (Reported) Entered as Reported by: ARTEM CELESTIN on 08/25/20 1014 Review of Systems Constitutional: No chills, No diaphoresis, No malaise, No weakness EENTM: No hearing loss, No ear pain, No blurred vision Respiratory: No cough, No dyspnea on exertion Cardiovascular: No chest pain Gastrointestinal: No abdominal pain, No diarrhea, No nausea, No vomiting Genitourinary: No decreased output, No discharge Musculoskeletal: No back pain; joint pain, joint swelling, muscle pain Skin: No change in color, No change in hair/nails All Other Systems Reviewed Negative Unless Noted: Yes Past Vsotton-Mogleo-Pxbjkt Hx Immunizations Up To Date Tetanus Booster (TDap): Less than 5yrs PED Vaccines UTD: Yes First/Initial COVID19 Vaccinat: JAN 2020 Second COVID19 Vaccination Nathen: FEB 2020 Third COVID19 Vaccination Date: JAN 2020 Seasonal Allergies Seasonal Allergies: Yes Past Medical History Surgery/Hospitalization HX: PARTIAL THYROIDECTOMY D/T CANCER,, TONSILLECTOMY, RIGHT KNEE SURGERY Surgeries: Yes Ear Surgery, Thyroidectomy Respiratory: No Pneumonia Cardiac: No Neurological: Yes Headaches /Migraines Reproductive Disorders: Yes Female Reproductive Disorders: Denies, Polycystic Ovarian Dis Sexually Transmitted Disease: No HIV/AIDS: No Genitourinary: No Gastrointestinal: Yes Gastroesophageal Reflux, Irritable Bowel Musculoskeletal: Yes (R FOOT FRACTURE) Fractures Endocrine: Yes (PART OF THYROID TAKEN OUT) Diabetes, Non-Insulin dep HEENT: Yes ( TONSILS OUT) Chronic Ear Infection, Tonsilitis Loss of Vision: Bilateral Hearing Impairment: Denies Cancer: No (THYROID PRE-CANCEROUS CELLS) Psychosocial: No Anxiety, Depression Integumentary: No Blood Disorders: No Adverse Reaction/Blood Tranf: No (N/A) Family Medical History Alcoholism grandparents Arthritis grandparents Asthma grandparents Colon cancer grandparents Diabetes mellitus 19 MOTHER grandparents FH: Hodgkin's disease 19 MOTHER Hypertension 19 FATHER 19 MOTHER grandparents Cancer, Diabetes, Hypertension Physical Exam Vital Signs Vital Signs - First Documented 05/18/22 18:12 Pulse 110 Resp 20 B/P (MAP) 148/103 (118) Pulse Ox 98 O2 Delivery Room Air Capillary Refill : Height, Weight, BMI Height: 5'1.00" Weight: 160lbs. 0.0oz. [id number]; 31.00 BMI Method:Stated General Appearance: WD/WN, no apparent distress HEENT: PERRL/EOMI, normal ENT inspection, TMs normal, pharynx normal Neck: non-tender, full range of motion, supple Cardiovascular: regular rate, rhythm, no edema, no gallop, no JVD Respiratory: chest non-tender, lungs clear, normal breath sounds, no respiratory distress Hips: bilateral hip non-tender, bilateral hip normal inspection, bilateral hip normal range of motion, bilateral hip no evidence of injury Knees: bilateral knee non-tender, bilateral knee normal inspection, bilateral knee normal range of motion, bilateral knee no evidence of injury Ankles: left ankle limited range of motion, left ankle pain (Tenderness to palpate left lateral ankle.), left ankle soft tissue tenderness, left ankle swelling Feet: bilateral foot non-tender, bilateral foot normal inspection Neurologic/Psychiatric: oven tender II-XII nml as tested, no motor/sensory deficits, alert, normal mood/affect, oriented x 3 Skin: normal color, warm/dry Progress/Results/Core Measures Results/Orders My Orders Orders - JEANE FRANCO Ankle, Left, 3 Views (05/18/22 18:17) Ibuprofen Tablet (Motrin Tablet) (05/18/22 18:30) Medications Given in ED Current Medications Medications Dose Ordered Sig/Keon Route Start Time Stop Time Status Last Admin Dose Admin Ibuprofen 600 mg ONCE ONCE PO 05/18/22 18:30 05/18/22 18:31 DC 05/18/22 18:24 600 MG Vital Signs/I&O 05/18/22 05/18/22 18:12 19:10 Pulse 110 110 Resp 20 20 B/P (MAP) 148/103 (118) 148/103 Pulse Ox 98 98 O2 Delivery Room Air Room Air Departure Communication (PCP) Patient with left lateral malleolus tenderness with soft tissue swelling. Due to mechanism of injury x-ray was ordered. X-ray read by myself did not show any acute fracture. Radiologist reviewed x-ray did not show any acute fracture. Neurovascular intact. patient was not able to bear weight or stand. Patient received 600 mg of ibuprofen. Discussed results with patient. Due to concern for ankle sprain not able to bear weight patient was provided crutches and a boot. Bear weight as tolerated. Recommend rest for the next 2 to 3 days. Provided range of motion exercises. Orthopedic follow-up in 7 to 10 days if pain progress or worsen for recheck with x-ray. Return precaution were discussed with patient. Impression Primary Impression: Ankle sprain Disposition: HOME, SELF-CARE Condition: Stable Departure-Patient Inst. Decision time for Depature: 19:02 Referrals: BILLY FRANZ MD (PCP/Family) Primary Care Physician XIMENA ANDREWS MD Patient Instructions: Ankle Sprain ED Add. Discharge Instructions: Recommend Motrin at home to help with pain and swelling. Ice 3-4 times a day. Crutches as needed. Boot for support. recommend range of motion exercise at home. Orthopedic follow-up in 7 to 14 days if pain progress for further evaluation. Work/School Note: Work Release Form Date Seen in the Emergency Department: May 18, 2022 Return to Work: May 21, 2022 JEANE FRANCO May 18, 2022 18:22
[2022-05-18] MEDS ORDERED: IBUPROFEN 600 MG (MOTRIN) TAB PO ONE (18:30)
--- NOTE | 2022-05-18 18:50 | Diagnostic Imaging Report ---
INDICATION: Lateral left ankle pain. FINDINGS: Alignment of the left ankle appears appropriate. There is no cortical disruption demonstrated of the distal tibia or the fibula or findings of abnormal widening of the ankle mortise. Visualized portion of the foot appears normal. IMPRESSION: 1. Negative radiographs of the left ankle. Dictated by: Dictated on workstation # [id number]
[2022-05-18 19:10] VITALS: BP 148/103
== END 2022-05-18 19:11 | disposition home or self-care (01) ==
LOC: EDUNIT# 18:00 → ER 18:03
DX: S93.492A Sprain of other ligament of left ankle, initial encounter (principal); X50.1XXA Overexertion from prolonged static or awkward postures, initial encounter
CPT/HCPCS: 73610; 99282; L2114

== ENCOUNTER → 2022-05-26 | Outpatient (CLI) | payer OTHER ==
--- NOTE | 2022-05-26 16:49 | Diagnostic Imaging Report ---
Technique: Live grayscale and color Doppler ultrasound was performed of the thyroid and neck. Reason for exam: History of right-sided thyroidectomy. Followup lymph nodes. Comparison: 02/23/2022. 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 The left lobe of the thyroid measures 5.6 x 1.9 x 1.7 cm. The isthmus measures 0.3 cm. There is mild heterogeneous echogenicity of the left lobe of the thyroid. No focal nodules are seen. There is normal color Doppler flow. No pathologically enlarged lymph nodes are seen in the neck. The previously visualized prominent lymph nodes in the right neck are not appreciated on today's exam. IMPRESSION: 1. Improved appearance of the neck with no evidence of enlarged lymph nodes in the right neck. 2. The previously visualized nodules in the left lobe of the thyroid are not seen on today's exam. Recommend continued followup as indicated. Dictated by: Dictated on workstation # [id number]
== END ==
LOC: RAD 12:45
PROVIDERS: ATTEND Nurse Practitioner
DX: Z90.89 Acquired absence of other organs (principal)
CPT/HCPCS: 76536

== ENCOUNTER 2022-07-23 21:30 | Emergency (ER) | payer OTHER ==
[~2022-07-23] VITALS: Ht 160 cm; Wt 72.0 kg
[2022-07-23] MEDS ORDERED: EPINEPHrine (ADULT) 0.3 MG/0.3 ML auto-inject ONE (21:38)
[2022-07-23] MEDS ORDERED: diphenhydrAMINE 50 MG/ML INJ (BENADRYL) IVP ONE (21:45)
[2022-07-23] MEDS ORDERED: FAMOTIDINE 20MG/2ML IV (PEPCID) IVP ONE (21:45)
[2022-07-23] MEDS ORDERED: EPINEPHrine (ADULT) 0.3 MG/0.3 ML auto-inject IM ONE (21:45)
--- NOTE | 2022-07-23 21:49 | ED General ---
General Chief Complaint: Allergic Reaction Stated Complaint: ALLERGIC REACTION/SOA Source of Information: Patient Exam Limitations: No Limitations (JOSH TOLBERT APRN) History of Present Illness Date Seen by Provider: Jul 23, 2022 Time Seen by Provider: 21:38 Initial Comments 22-year-old female presents to the ER with reports of allergic reaction. States she accidentally ate pineapple 1 hour prior to arrival. 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 States that she was unable to take Benadryl right away, she took 50 mg of Benadryl approximately 20 minutes ago. She is complaining of shortness of air, chest and throat tightness, itchy and red skin. (JOSH TOLBERT APRN) Allergies and Home Medications Allergies Coded Allergies: vancomycin (Unverified Allergy, Intermediate, BRIGHT RED FACE WITH NO BREATHING DIFFICULTY, 03/17/15) Penicillins (Unverified Allergy, Mild, RASH,N/V; HAS RECEIVED ANCEF WITHOUT PROBLEM, 11/22/12) codeine (Unverified Allergy, Mild, STRONG FAMILY HX OF REACTIONS, 10/10/08) hydrocodone (Verified Allergy, Unknown, 12/23/17) Sulfa (Sulfonamide Antibiotics) (Unverified Adverse Reaction, Unknown, STRONG FAMILY HX OF REACTIONS, 03/17/15) Patient Home Medication List Home Medication List Reviewed: Yes (JOSH TOLBERT APRN) Acetaminophen (Tylenol) 325 Mg Tablet, 650 MG PO Q6H PRN for PAIN-MILD (1-4), (Reported) Entered as Reported by: ARTEM CELESTIN on 08/25/20 1014 Cetirizine HCl (Zyrtec) 10 Mg Tablet, 10 MG PO HS, (Reported) Entered as Reported by: ARTEM CELESTIN on 08/25/20 1014 Epinephrine (Epipen 2-Stewart) 0.3 Mg/0.3 Ml Auto.injct, 0.3 MG IJ ONCE Prescribed by: FIOR BREWER on 07/24/22 0140 Escitalopram Oxalate (Escitalopram Oxalate) 20 Mg Tablet, 20 MG PO HS, (Reported) Entered as Reported by: ARTEM CELESTIN on 08/25/20 1014 Hydralazine HCl (Hydralazine HCl) 10 Mg Tablet, 10 MG PO TID Prescribed by: YAKELIN RAMOS on 09/23/21 1107 Hydrocodone/Acetaminophen (Hydrocodone-Acetamin 7.5-325) 1 Each Tablet, 1 EACH PO Q4H Prescribed by: CHARLOTTE SINGLETON on 08/25/20 1721 Lactobacillus Combo No.10 (Probiotic) 1 Each Capsule, 1 EACH PO HS, (Reported) Entered as Reported by: ARTEM CELESTIN on 08/25/20 1014 Multivitamin (Multivitamin) 1 Each Tablet, 1 EACH PO HS, (Reported) Entered as Reported by: ARTEM CELESTIN on 08/25/20 1014 Norelgestromin/Ethin.estradiol (Xulane Patch) 1 Each Patch.tdwk, 1 EACH TD TUESDAY, (Reported) Entered as Reported by: ARTEM CELESTIN on 08/25/20 1014 Prednisone (Prednisone) 20 Mg Tab, 40 MG PO DAILY Prescribed by: FIOR BREWER on 07/24/22 0140 Spironolactone (Spironolactone) 50 Mg Tablet, 50 MG PO HS, (Reported) Entered as Reported by: ARTEM CELESTIN on 08/25/20 1014 Review of Systems Review of Systems Constitutional: no symptoms reported Respiratory: short of breath Skin: other (Erythema and pruritus) (JOSH TOLBERT APRN) Past Fuepkds-Nsksxl-Duskey Hx Immunizations Up To Date Tetanus Booster (TDap): Less than 5yrs PED Vaccines UTD: Yes First/Initial COVID19 Vaccinat: JAN 2020 Second COVID19 Vaccination Nathen: FEB 2020 Third COVID19 Vaccination Date: JAN 2020 (JOSH TOLBERT APRN) Seasonal Allergies Seasonal Allergies: Yes (JOSH TOLBERT APRN) Past Medical History Surgery/Hospitalization HX: PARTIAL THYROIDECTOMY D/T CANCER,, TONSILLECTOMY, RIGHT KNEE SURGERY Surgeries: Yes Ear Surgery, Thyroidectomy Respiratory: No Pneumonia Cardiac: No Neurological: Yes Headaches /Migraines Reproductive Disorders: Yes Female Reproductive Disorders: Denies, Polycystic Ovarian Dis Sexually Transmitted Disease: No HIV/AIDS: No Genitourinary: No Gastrointestinal: Yes Gastroesophageal Reflux, Irritable Bowel Musculoskeletal: Yes (R FOOT FRACTURE) Fractures Endocrine: Yes (PART OF THYROID TAKEN OUT) Diabetes, Non-Insulin dep HEENT: Yes ( TONSILS OUT) Chronic Ear Infection, Tonsilitis Loss of Vision: Bilateral Hearing Impairment: Denies Cancer: No (THYROID PRE-CANCEROUS CELLS) Psychosocial: No Anxiety, Depression Integumentary: No Blood Disorders: No Adverse Reaction/Blood Tranf: No (N/A) (JOSH TOLBERT APRN) Family Medical History Alcoholism grandparents Arthritis grandparents Asthma grandparents Colon cancer grandparents Diabetes mellitus 19 MOTHER grandparents FH: Hodgkin's disease 19 MOTHER Hypertension 19 FATHER 19 MOTHER grandparents Cancer, Diabetes, Hypertension (JOSH TOLBERT APRN) Physical Exam Vital Signs Vital Signs - First Documented 07/23/22 07/24/22 21:35 01:35 Temp 36.4 Pulse 106 Resp 26 B/P (MAP) 175/106 (129) Pulse Ox 100 (FIOR BREWER DO) Vital Signs Capillary Refill : (JOSH TOLBERT APRN) Height, Weight, BMI Height: 5'1.00" Weight: 160lbs. 0.0oz. [id number]; 31.00 BMI Method:Stated General Appearance: Moderate Distress Neck: Non Tender, Supple Respiratory: Lungs Clear, Normal Breath Sounds, Respiratory Distress (Tachypneic) Cardiovascular: Tachycardia Extremity: Normal Inspection, Normal Range of Motion Neurologic/Psychiatric: Alert, No Motor/Sensory Deficits Skin: Erythema, Rash (JOSH TOLBERT APRN) Progress/Results/Core Measures Suspected Sepsis SIRS Temperature: Pulse: Respiratory Rate: Blood Pressure / Mean: (JOSH TOLBERT APRN) Results/Orders My Orders Orders - FIOR BREWER DO Epinephrine Adult Auto-Inject (Epipen (A (07/23/22 21:38) (FIOR BREWER DO) Medications Given in ED Current Medications Medications Dose Ordered Sig/Keon Route Start Time Stop Time Status Last Admin Dose Admin Diphenhydramine HCl 25 mg ONCE ONCE IVP 07/23/22 21:45 07/23/22 21:46 DC 07/23/22 21:53 25 MG Epinephrine 0.3 mg ONCE ONCE IM 07/23/22 21:45 07/23/22 21:46 DC 07/23/22 21:40 0.3 MG Famotidine 20 mg ONCE ONCE IVP 07/23/22 21:45 07/23/22 21:46 DC 07/23/22 21:53 20 MG (FIOR BREWER DO) Vital Signs/I&O 07/23/22 07/24/22 21:35 01:35 Temp 36.4 Pulse 106 96 Resp 26 16 B/P (MAP) 175/106 (129) 135/93 Pulse Ox 100 (FIOR BREWER DO) Vital Signs/I&O Capillary Refill : (JOSH TOLBERT APRN) Progress Note : Progress Note Patient seen and evaluated, moderate distress. Patient is tachypneic. Skin is erythemic. Epinephrine ordered as well as Benadryl and Pepcid. 2300 Itching, erythema, chest tightness, and shortness of breath has improved. Will continue to monitor patient. (JOSH TOLBERT APRN) Transfer of Care Transfer of Care Time: 00:10 Care transferred to: Dr. Brewer, ED physician (JOSH TOLBERT APRN) Departure Impression Primary Impression: Allergic reaction Disposition: 01 HOME, SELF-CARE Condition: Improved Departure-Patient Inst. Decision time for Depature: 01:18 (FIOR BREWER DO) Referrals: BILLY FRANZ MD (PCP/Family) Primary Care Physician Patient Instructions: Allergic Reaction ED, Food allergy Add. Discharge Instructions: AVOID ANY KNOWN ALLERGIC SUBSTANCES LOTS OF WATER BENADRYL 50 MG EVERY 4 HOURS NEEDED FOR ALLERGIC SYMPTOMS USE EPI PEN INSTRUCTED AT FIRST SIGN OF SERIOUS REACTION SUCH DIFFICULTY BREATHING, WHEEZING, SWELLING OF LIPS OR TONGUE OR THROAT ALSO TAKE PREDNISONE AT FIRST SIGN OF AN ALLERGIC REACTION FOLLOW UP WITH YOUR DR NEXT WEEK FOR FURTHER CARE, RETURN TO ER IF SYMPTOMS WORSEN All discharge instructions reviewed with patient and/or family. Voiced understanding. Scripts Prednisone (Prednisone) 20 Mg Tab 40 MG PO DAILY, #6 TAB 0 Refills Prov: FIOR BREWER DO 07/24/22 Epinephrine (Epipen 2-Stewart) 0.3 Mg/0.3 Ml Auto.injct 0.3 MG IJ ONCE, #1 EA 0 Refills Prov: FIOR BREWER DO 07/24/22 JOSH TOLBERT APRN Jul 23, 2022 21:49 FIOR BREWER DO Jul 24, 2022 01:21
[2022-07-24] MEDS ORDERED: EPIN0.3P3 IJ ×2 (00:04→01:40)
[2022-07-24] MEDS ORDERED: PRD20T PO ×2 (01:20→01:40)
[2022-07-24 01:35] VITALS: BP 135/93
== END 2022-07-24 01:49 | disposition home or self-care (01) ==
LOC: EDUNIT# 21:30 → ER 21:31
DX: T78.1XXA Other adverse food reactions, not elsewhere classified, initial encounter (principal)

== ENCOUNTER → 2022-07-27 | Outpatient (CLI) | payer OTHER ==
[~2022-07-27] MED LIST changes: +EPIN0.3P3 IJ; +PRD20T PO
[2022-07-27 09:35] LABS: BASOPHILS % (AUTO) 0 % (0-10); EOSINOPHILS # (AUTO) 0.1 10^3/uL (0.0-0.3); EOSINOPHILS % (AUTO) 1 % (0-10); HEMATOCRIT 43 % (35-52); HEMOGLOBIN 13.9 g/dL (11.5-16.0); LYMPHOCYTES # (AUTO) 1.8 10^3/uL (1.0-4.0); LYMPHOCYTES % (AUTO) 24 % (12-44); MEAN CORPUSCULAR HEMOGLOBIN 27 pg (25-34); MEAN CORPUSCULAR HGB CONC 33 g/dL (32-36); MEAN CORPUSCULAR VOLUME 84 fL (80-99); MEAN PLATELET VOLUME 11.2 fL (9.0-12.2); MONOCYTES # (AUTO) 0.4 10^3/uL (0.0-1.0); MONOCYTES % (AUTO) 5 % (0-12); NEUTROPHILS # (AUTO) 5.2 10^3/uL (1.8-7.8); NEUTROPHILS % (AUTO) 69 % (42-75); PLATELET COUNT 253 10^3/uL (130-400); WHITE BLOOD COUNT 7.5 10^3/uL (4.3-11.0)
[2022-07-27 10:00] LABS: ALBUMIN 4.3 GM/DL (3.2-4.5); BILIRUBIN,TOTAL 0.4 MG/DL (0.1-1.0); CALCIUM 9.7 MG/DL (8.5-10.1); CREATININE SERUM 0.83 MG/DL (0.60-1.30); POTASSIUM 4.1 MMOL/L (3.6-5.0); TOTAL PROTEIN 7.5 GM/DL (6.4-8.2)
[2022-07-27 10:24] LABS: FREE T4 (FREE THYROXINE) 0.98 NG/DL (0.70-1.48)
== END ==
LOC: LAB 09:16
PROVIDERS: ATTEND Nurse Practitioner Family
DX: E11.9 Type 2 diabetes mellitus without complications (principal); I10 Essential (primary) hypertension; E55.9 Vitamin D deficiency, unspecified; L65.9 Nonscarring hair loss, unspecified; A93.8 Other specified arthropod-borne viral fevers
CPT/HCPCS: 36415; 80053; 82306; 82672; 83001; 83002; 83036; 84144; 84439; 84443; 84480; 85025; 86003; 86376; 86800

== ENCOUNTER 2022-08-11 20:10 | Emergency (ER) | payer OTHER ==
[~2022-08-11] VITALS: Ht 157.5 cm; Wt 77.0 kg
--- NOTE | 2022-08-11 20:33 | ED Head Injury ---
General Stated Complaint: DIZZINESS|HEAD LACERATION Source: patient Exam Limitations: no limitations (JEANE FRANCO) History of Present Illness Date Seen by Provider: Aug 11, 2022 Time Seen by Provider: 20:31 Initial Comments Patient is a 22-year-old female who presents to ED with dizziness, nausea and head injury. Patient fell about 1 hour ago. She got out of the shower felt dizzy in her bedroom hitting the wooden frame on the right sided face/scalp. this resulted in a 1 cm laceration. Bleeding controlled with direct pressure. She is up-to-date on her tetanus. Not on blood thinners. She states she fell again this morning. She was dizzy at the time. She has been having dizziness and nausea for the past 2 weeks. Diagnosed with UTI today placed on Cipro but has not taken the medication yet. Similar symptoms with UTI in the past. She gets dizzy and nauseous with UTIs. She has no urinary symptoms, abdominal pain, chest pain, cough, shortness of breath, visual changes, headache, vomiting, diarrhea. No focal neural deficits. (JEANE FRANCO) Allergies and Home Medications Allergies Coded Allergies: vancomycin (Unverified Allergy, Intermediate, BRIGHT RED FACE WITH NO BREATHING DIFFICULTY, 03/17/15) Penicillins (Unverified Allergy, Mild, RASH,N/V; HAS RECEIVED ANCEF WITHOUT PROBLEM, 11/22/12) codeine (Unverified Allergy, Mild, STRONG FAMILY HX OF REACTIONS, 10/10/08) hydrocodone (Verified Allergy, Unknown, 12/23/17) Sulfa (Sulfonamide Antibiotics) (Unverified Adverse Reaction, Unknown, STRONG FAMILY HX OF REACTIONS, 03/17/15) Patient Home Medication List Home Medication List Reviewed: Yes (JEANE FRANCO) Acetaminophen (Tylenol) 325 Mg Tablet, 650 MG PO Q6H PRN for PAIN-MILD (1-4), (Reported) Entered as Reported by: ARTEM CELESTIN on 08/25/20 1014 Cetirizine HCl (Zyrtec) 10 Mg Tablet, 10 MG PO HS, (Reported) Entered as Reported by: ARTEM CELESTIN on 08/25/20 1014 Epinephrine (Epipen 2-Stewart) 0.3 Mg/0.3 Ml Auto.injct, 0.3 MG IJ ONCE Prescribed by: FIOR DU on 07/24/22 0140 Escitalopram Oxalate (Escitalopram Oxalate) 20 Mg Tablet, 20 MG PO HS, (Reported) Entered as Reported by: ARTEM CELESTIN on 08/25/20 1014 Hydralazine HCl (Hydralazine HCl) 10 Mg Tablet, 10 MG PO TID Prescribed by: YAKELIN RAMOS on 09/23/21 1107 Hydrocodone/Acetaminophen (Hydrocodone-Acetamin 7.5-325) 1 Each Tablet, 1 EACH PO Q4H Prescribed by: CHARLOTTE SINGLETON on 08/25/20 1721 Lactobacillus Combo No.10 (Probiotic) 1 Each Capsule, 1 EACH PO HS, (Reported) Entered as Reported by: ARTEM CELESTIN on 08/25/20 1014 Multivitamin (Multivitamin) 1 Each Tablet, 1 EACH PO HS, (Reported) Entered as Reported by: ARTEM CELESTIN on 08/25/20 1014 Norelgestromin/Ethin.estradiol (Xulane Patch) 1 Each Patch.tdwk, 1 EACH TD TUESDAY, (Reported) Entered as Reported by: ARTEM CELESTIN on 08/25/20 1014 Prednisone (Prednisone) 20 Mg Tab, 40 MG PO DAILY Prescribed by: FIOR DU on 07/24/22 0140 Spironolactone (Spironolactone) 50 Mg Tablet, 50 MG PO HS, (Reported) Entered as Reported by: ARTEM CELESTIN on 08/25/20 1014 Review of Systems Review of Systems Constitutional: No chills, No diaphoresis, No fever, No malaise, No weakness Eyes: Denies Blurred Vision, Denies Drainage Ears, Nose, Mouth, Throat: denies ear pain, denies ear discharge Respiratory: No cough, No dyspnea on exertion Cardiovascular: No chest pain Gastrointestinal: No abdominal pain, No diarrhea, No nausea, No vomiting Genitourinary: No discharge, No dysuria, No frequency Musculoskeletal: No back pain, No joint pain Skin: change in color; No change in hair/nails Psychiatric/Neurological: Other (dizziness) Endocrine: Denies No Symptoms Reported, Denies See HPI, Denies Excessive Sweating, Denies Flushing, Denies Intolerance to Cold, Denies Intolerance to H eat, Denies Increased Hunger, Denies Increased Thrist, Denies Increased Urine, Denies Unexplained Weight Gain, Denies Unexplaned Weight Loss, Denies Other (JEANE FRANCO) All Other Systems Reviewed Negative Unless Noted: Yes (JEANE FRANCO) Past [id number] Hx Immunizations Up To Date Tetanus Booster (TDap): Less than 5yrs PED Vaccines UTD: Yes First/Initial COVID19 Vaccinat: JAN 2020 Second COVID19 Vaccination Nathen: FEB 2020 Third COVID19 Vaccination Date: JAN 2020 (JEANE FRANCO) Seasonal Allergies Seasonal Allergies: Yes (JEANE FRANCO) Past Medical History Surgery/Hospitalization HX: PARTIAL THYROIDECTOMY D/T CANCER,, TONSILLECTOMY, RIGHT KNEE SURGERY Surgeries: Yes Ear Surgery, Thyroidectomy Respiratory: No Pneumonia Cardiac: No Neurological: Yes Headaches /Migraines Reproductive Disorders: Yes Female Reproductive Disorders: Denies, Polycystic Ovarian Dis Sexually Transmitted Disease: No HIV/AIDS: No Genitourinary: No Gastrointestinal: Yes Gastroesophageal Reflux, Irritable Bowel Musculoskeletal: Yes (R FOOT FRACTURE) Fractures Endocrine: Yes (PART OF THYROID TAKEN OUT) Diabetes, Non-Insulin dep HEENT: Yes ( TONSILS OUT) Chronic Ear Infection, Tonsilitis Loss of Vision: Bilateral Hearing Impairment: Denies Cancer: No (THYROID PRE-CANCEROUS CELLS) Psychosocial: No Anxiety, Depression Integumentary: No Blood Disorders: No Adverse Reaction/Blood Tranf: No (N/A) (JEANE FRANCO) Family Medical History Alcoholism grandparents Arthritis grandparents Asthma grandparents Colon cancer grandparents Diabetes mellitus 19 MOTHER grandparents FH: Hodgkin's disease 19 MOTHER Hypertension 19 FATHER 19 MOTHER grandparents Cancer, Diabetes, Hypertension (JEANE FRANCO) Physical Exam Vital Signs Vital Signs - First Documented 08/11/22 20:13 Temp 36.8 Pulse 91 Resp 16 B/P (MAP) 152/91 (111) Pulse Ox 99 O2 Delivery Room Air (ANA LAURA,FIOR K DO) Vital Signs Capillary Refill : (JEANE FRANCO) Height, Weight, BMI Height: 5'1.00" Weight: 160lbs. 0.0oz. [id number]; 28.00 BMI Method:Stated General Appearance: WD/WN, no apparent distress HEENT: PERRL/EOMI, normal ENT inspection, TMs normal, pharynx normal, other (1 cm laceration to the right sided scalp/face. Tenderness to palpate.) Neck: non-tender, full range of motion, supple, normal inspection Cardiovascular: regular rate, rhythm, no edema, no gallop, no JVD Respiratory: chest non-tender, lungs clear, normal breath sounds, no respiratory distress, no accessory muscle use Gastrointestinal: normal bowel sounds, non tender, soft, no organomegaly Back: normal inspection, no CVA tenderness, no vertebral tenderness Extremities: normal range of motion, non-tender, normal inspection, no pedal edema Psychiatric: alert, oriented x 3, depressed affect Skin: other (1 cm laceration to the right scalp.) (JEANE FRANCO) [place] Coma Score Best Eye Response: (4) Open Spontaneously Best Verbal Response: (5) Oriented Best Motor Response: (6) Obeys Commands Jn Total: 15 (JEANE FRANCO) Procedures/Interventions Wound Location: Scalp Other Wound Location right temporal scalp 1 cm laceration Wound Length (cm): 1 Wound's Depth, Shape: superficial Wound Explored: clean Irrigated w/ Saline (ccs): 200 Betadine Prep?: Yes Anesthesia: 1% Lidocaine Volume Anesthetic (ccs): 2 Suture: Ethlion Suture Size: 6-0 Number of Sutures: 2 Layer Closure?: 1 Sterile Dressing Applied?: Yes (JEANE FRANCO) Progress/Results/Core Measures Results/Orders Lab Results Laboratory Tests Test 08/11/22 20:55 08/11/22 21:18 Range/Units White Blood Count 8.9 4.3-11.0 10^3/uL Red Blood Count 5.01 3.80-5.11 10^6/uL Hemoglobin 13.8 11.5-16.0 g/dL Hematocrit 42 35-52 % Mean Corpuscular Volume 84 80-99 fL Mean Corpuscular Hemoglobin 28 25-34 pg Mean Corpuscular Hemoglobin Concent 33 32-36 g/dL Red Cell Distribution Width 12.2 10.0-14.5 % Platelet Count 277 130-400 10^3/uL Mean Platelet Volume 10.9 9.0-12.2 fL Immature Granulocyte % (Auto) 0 % Neutrophils (%) (Auto) 60 42-75 % Lymphocytes (%) (Auto) 33 12-44 % Monocytes (%) (Auto) 5 0-12 % Eosinophils (%) (Auto) 1 0-10 % Basophils (%) (Auto) 0 0-10 % Neutrophils # (Auto) 5.3 1.8-7.8 10^3/uL Lymphocytes # (Auto) 3.0 1.0-4.0 10^3/uL Monocytes # (Auto) 0.5 0.0-1.0 10^3/uL Eosinophils # (Auto) 0.1 0.0-0.3 10^3/uL Basophils # (Auto) 0.0 0.0-0.1 10^3/uL Immature Granulocyte # (Auto) 0.0 0.0-0.1 10^3/uL Sodium Level 140 135-145 MMOL/L Potassium Level 3.7 3.6-5.0 MMOL/L Chloride Level 105 98-107 MMOL/L Carbon Dioxide Level 22 21-32 MMOL/L Anion Gap 13 5-14 MMOL/L Blood Urea Nitrogen 13 7-18 MG/DL Creatinine 0.88 0.60-1.30 MG/DL Estimat Glomerular Filtration Rate 95 BUN/Creatinine Ratio 15 Glucose Level 101 70-105 MG/DL Calcium Level 9.4 8.5-10.1 MG/DL Corrected Calcium 9.1 8.5-10.1 MG/DL Total Bilirubin 0.1 0.1-1.0 MG/DL Aspartate Amino Transf (AST/SGOT) 13 5-34 U/L Alanine Aminotransferase (ALT/SGPT) 23 0-55 U/L Alkaline Phosphatase 76 40-136 U/L Total Protein 7.6 6.4-8.2 GM/DL Albumin 4.4 3.2-4.5 GM/DL Urine Color YELLOW Urine Clarity CLEAR Urine pH 6.0 5-9 Urine Specific [place] 1.020 1.016-1.022 Urine Protein NEGATIVE NEGATIVE Urine Glucose (UA) NEGATIVE NEGATIVE Urine Ketones NEGATIVE NEGATIVE Urine Nitrite NEGATIVE NEGATIVE Urine Bilirubin NEGATIVE NEGATIVE Urine Urobilinogen 0.2 < = 1.0 MG/DL Urine Leukocyte Esterase 1+ H NEGATIVE Urine RBC (Auto) 2+ H NEGATIVE Urine RBC 2-5 H /HPF Urine WBC 0-2 /HPF Urine Squamous Epithelial Cells 25-50 H /HPF Urine Crystals PRESENT H /LPF Urine Amorphous Sediment MOD LANCE URATES H /LPF Urine Bacteria FEW H /HPF Urine Casts NONE /LPF Urine Mucus SMALL H /LPF Urine Culture Indicated NO (FIOR DU DO) Vital Signs/I&O 08/11/22 08/11/22 20:13 22:00 Temp 36.8 Pulse 91 86 Resp 16 16 B/P (MAP) 152/91 (111) 144/84 Pulse Ox 99 99 O2 Delivery Room Air Room Air (FIOR DU DO) Departure Communication (PCP) Patient with a mechanical fall. Patient states she was getting out of the shower went into her room she felt dizzy fell hitting her wooden frame in her bedroom. No loss conscious or on blood thinners. This resulted in 1 cm laceration to the right side of the scalp/face. No crepitus or tenderness on palpation. Due to location of injury CT scan of the head was ordered which was negative for hemorrhaging or fracture. No pain with eye movement. No anterior or frontal facial tenderness. CBC, CMP was added secondary to the fall. She states she has been feeling dizzy and nauseous over the past 2 weeks. She checked her urine which tested positive for UTI. Patient Was placed on Cipro today but has not taken a dose. She has no urinary symptoms but states she typically feels dizzy and nauseous which is a indicator for a UTI. She states this is chronic. She is afebrile. CBC, CMP grossly unremarkable. Urinalysis q uestionable UTI versus contamination. She has no chest pain or shortness of breath. Denies family history of sudden cardiac . She did fall this morning as well secondary to dizziness. She is not orthostatic hypotensive. She appears well-hydrated. Patient with a soft abdomen. No flank pain. Recommend suture removal in 6 days. Neosporin topical twice a day. Up-to-date on her tetanus. Recommend staying hydrated which she has been doing. Follow-up your PCP in 1 to 2 days for reevaluation. If any worsening symptoms return back to ED. (JEANE FRANCO) Impression Primary Impression: Facial laceration Disposition: 01 HOME, SELF-CARE Condition: Stable Departure-Patient Inst. Decision time for Depature: :46 (JEANE FRANCO) Referrals: VIRGIL ORELLANA (PCP/Family) Primary Care Physician Patient Instructions: Laceration Repair With Stitches ED Add. Discharge Instructions: Remove stitches in 6 days. Take antibiotic as prescribed. Follow-up your PCP for repeat evaluation. If worsening head pain, vomiting, loss of conscious return back to you. ATTENDING PHYSICIAN NOTE: I WAS PHYSICALLY PRESENT ER PHYSICIAN, BUT I WAS NOT INVOLVED IN ANY DECISION MAKING OR ANY CARE OF THIS PATIENT AND I AM NOT COLLABORATING PHYSICIAN. (FIOR DU DO) JENAE FRANCO Aug 11, 2022 20:33 FIOR DU DO Aug 12, 2022 06:18
--- NOTE | 2022-08-11 20:48 | Diagnostic Imaging Report ---
PROCEDURE: CT head without contrast. TECHNIQUE: Multiple contiguous axial images were obtained through the brain without the use of intravenous contrast. Auto Exposure Controls were utilized during the CT exam to meet ALARA standards for radiation dose reduction. INDICATION: Right temporal pain. FINDINGS: The ventricles and sulci are within normal limits. There is no hydrocephalus or cerebral edema. There is no midline shift or mass effect. There is no intracranial mass, hemorrhage or extra-axial fluid collection. The visualized paranasal sinuses and mastoid air cells are clear. There is no regional area of decreased attenuation appreciated to suggest an acute CVA. IMPRESSION: No acute intracranial abnormality. Dictated by: Dictated on workstation # [id number]
[2022-08-11 21:00] LABS: BASOPHILS % (AUTO) 0 % (0-10); EOSINOPHILS # (AUTO) 0.1 10^3/uL (0.0-0.3); EOSINOPHILS % (AUTO) 1 % (0-10); HEMATOCRIT 42 % (35-52); HEMOGLOBIN 13.8 g/dL (11.5-16.0); LYMPHOCYTES % (AUTO) 33 % (12-44); MEAN CORPUSCULAR HEMOGLOBIN 28 pg (25-34); MEAN CORPUSCULAR HGB CONC 33 g/dL (32-36); MEAN CORPUSCULAR VOLUME 84 fL (80-99); MEAN PLATELET VOLUME 10.9 fL (9.0-12.2); MONOCYTES # (AUTO) 0.5 10^3/uL (0.0-1.0); MONOCYTES % (AUTO) 5 % (0-12); NEUTROPHILS # (AUTO) 5.3 10^3/uL (1.8-7.8); NEUTROPHILS % (AUTO) 60 % (42-75); PLATELET COUNT 277 10^3/uL (130-400); WHITE BLOOD COUNT 8.9 10^3/uL (4.3-11.0)
[2022-08-11 21:10] LABS: ALBUMIN 4.4 GM/DL (3.2-4.5)
[2022-08-11 21:11] LABS: POTASSIUM 3.7 MMOL/L (3.6-5.0)
[2022-08-11 21:12] LABS: CALCIUM 9.4 MG/DL (8.5-10.1)
[2022-08-11 21:13] LABS: TOTAL PROTEIN 7.6 GM/DL (6.4-8.2)
[2022-08-11 21:15] LABS: BILIRUBIN,TOTAL 0.1 MG/DL (0.1-1.0)
[2022-08-11 21:17] LABS: CREATININE SERUM 0.88 MG/DL (0.60-1.30)
[2022-08-11 21:27] LABS: BILIRUBIN,URINE NEGATIVE (NEGATIVE); CLARITY,URINE CLEAR; COLOR,URINE YELLOW; GLUCOSE, URINE (UA) NEGATIVE (NEGATIVE); KETONES,URINE NEGATIVE (NEGATIVE); LEUKOCYTE ESTERASE ,URINE 1+ (NEGATIVE); NITRITE,URINE NEGATIVE (NEGATIVE); PROTEIN,URINE NEGATIVE (NEGATIVE)
[2022-08-11 21:41] LABS: BACTERIA,URINE FEW /HPF; SQUAMOUS EPITHELIAL CELL,UR 25-50 /HPF; WBC,URINE 0-2 /HPF
[2022-08-11 21:42] LABS: AMORPHOUS SEDIMENT,UR MOD AMOR URATES /LPF
[2022-08-11 22:00] VITALS: BP 144/84
== END 2022-08-11 22:00 | disposition home or self-care (01) ==
LOC: EDUNIT# 20:10 → ER 20:11
DX: S01.01XA Laceration without foreign body of scalp, initial encounter (principal); N39.0 Urinary tract infection, site not specified; Z88.0 Allergy status to penicillin; Z88.2 Allergy status to sulfonamides; Z88.1 Allergy status to other antibiotic agents; W18.30XA Fall on same level, unspecified, initial encounter; W22.03XA Walked into furniture, initial encounter; Y92.003 Bedroom of unspecified non-institutional (private) residence as the place of occurrence of the external cause
CPT/HCPCS: 12011; 36415; 70450; 80053; 81000; 85025

== ENCOUNTER → 2022-11-02 | Outpatient (CLI) | payer OTHER ==
--- NOTE | 2022-11-02 16:58 | Diagnostic Imaging Report ---
HISTORY: Hip pain. EXAMINATION: Right hip, 2 views, on 11/02/2022. FINDINGS: There is no evidence for an acute fracture or dislocation. The joint spaces are well maintained. There is no significant soft tissue swelling. IMPRESSION: No acute process. COMPARISON: None available. FINDINGS: Dictated by: Dictated on workstation # [id number]
== END ==
LOC: RAD 12:04
PROVIDERS: ATTEND Nurse Practitioner Family
DX: M25.551 Pain in right hip (principal)
CPT/HCPCS: 73502

== ENCOUNTER → 2022-11-23 | Outpatient (CLI) | payer OTHER ==
[2022-11-23 15:34] LABS: BASOPHILS % (AUTO) 0 % (0-10); EOSINOPHILS # (AUTO) 0.2 10^3/uL (0.0-0.3); EOSINOPHILS % (AUTO) 2 % (0-10); HEMATOCRIT 41 % (35-52); HEMOGLOBIN 13.3 g/dL (11.5-16.0); LYMPHOCYTES # (AUTO) 2.3 10^3/uL (1.0-4.0); LYMPHOCYTES % (AUTO) 26 % (12-44); MEAN CORPUSCULAR HEMOGLOBIN 28 pg (25-34); MEAN CORPUSCULAR HGB CONC 33 g/dL (32-36); MEAN CORPUSCULAR VOLUME 85 fL (80-99); MEAN PLATELET VOLUME 10.8 fL (9.0-12.2); MONOCYTES # (AUTO) 0.5 10^3/uL (0.0-1.0); MONOCYTES % (AUTO) 5 % (0-12); NEUTROPHILS % (AUTO) 67 % (42-75); PLATELET COUNT 232 10^3/uL (130-400); WHITE BLOOD COUNT 9.1 10^3/uL (4.3-11.0)
[2022-11-23 15:52] LABS: BILIRUBIN,TOTAL 0.3 MG/DL (0.1-1.0); CALCIUM 8.7 MG/DL (8.5-10.1); CREATININE SERUM 0.77 MG/DL (0.60-1.30); POTASSIUM 3.9 MMOL/L (3.6-5.0)
== END ==
LOC: LAB 15:15
PROVIDERS: ATTEND Nurse Practitioner Family
DX: E83.51 Hypocalcemia (principal); Z90.89 Acquired absence of other organs
CPT/HCPCS: 36415; 80053; 85025

== ENCOUNTER → 2022-12-13 | Outpatient (CLI) | payer OTHER ==
[2022-12-13 11:47] LABS: CALCIUM 8.7 MG/DL (8.5-10.1); CREATININE SERUM 0.83 MG/DL (0.60-1.30); POTASSIUM 4.1 MMOL/L (3.6-5.0)
== END ==
LOC: LAB 11:10
PROVIDERS: ATTEND Nurse Practitioner Family
DX: E89.0 Postprocedural hypothyroidism (principal)
CPT/HCPCS: 36415; 80048; 84439; 84443

== ENCOUNTER → 2023-01-11 | Outpatient (CLI) | payer OTHER ==
[2023-01-11 10:21] LABS: CALCIUM 8.6 MG/DL (8.5-10.1); CREATININE SERUM 0.78 MG/DL (0.60-1.30); POTASSIUM 4.2 MMOL/L (3.6-5.0)
[2023-01-11 10:44] LABS: FREE T4 (FREE THYROXINE) 0.93 NG/DL (0.70-1.48)
== END ==
LOC: LAB 09:51
PROVIDERS: ATTEND Nurse Practitioner Family
DX: E89.0 Postprocedural hypothyroidism (principal)
CPT/HCPCS: 36415; 80048; 84439; 84443

== ENCOUNTER → 2023-01-18 | Outpatient (CLI) | payer OTHER | LOC: LAB 10:59 | PROVIDERS: ATTEND Nurse Practitioner Family | DX: N39.0 Urinary tract infection, site not specified (principal) | CPT/HCPCS: 87088 ==

== ENCOUNTER → 2023-01-24 | Outpatient (CLI) | payer OTHER ==
[2023-01-24 12:44] LABS: BILIRUBIN,URINE NEGATIVE (NEGATIVE); CLARITY,URINE CLEAR; COLOR,URINE YELLOW; GLUCOSE, URINE (UA) NEGATIVE (NEGATIVE); KETONES,URINE NEGATIVE (NEGATIVE); NITRITE,URINE NEGATIVE (NEGATIVE); PH,URINE 5.5 (5-9); PROTEIN,URINE TRACE (NEGATIVE)
[2023-01-24 12:45] LABS: BACTERIA,URINE MODERATE /HPF; LEUKOCYTE ESTERASE ,URINE TRACE (NEGATIVE)
== END ==
LOC: LAB 12:24
PROVIDERS: ATTEND Nurse Practitioner Family
DX: R30.0 Dysuria (principal)
CPT/HCPCS: 81000; 87088